=== PATIENT | female | born 1985 | race Caucasian/White ===

== ENCOUNTER 2019-05-24 14:13 | Inpatient (IN) | payer SELFPAY ==
[~2019-05-24] VITALS: Ht 170.2 cm; Wt 59.5 kg
[2019-05-24 14:57] LABS: BASO % 0 % (0-3); EOS % 0 % (0-3); HEMATOCRIT 41.6 % (36.0-47.0); HEMOGLOBIN 14.4 g/dL (12.0-15.5); LYMPH % 12 % (24-48); MEAN CORPUSCULAR HEMOGLOBIN 31 pg (25-35); MEAN CORPUSCULAR HGB CONC 35 g/dL (31-37); MEAN CORPUSCULAR VOLUME 88 fL (79-100); MONO # 0.5 x10^3/uL (0.0-1.1); MONO % 6 % (0-9); NEUT # 7.3 x10^3/uL (1.8-7.7); NEUT % 82 % (31-73); PLATELET COUNT 270 x10^3/uL (140-400); RED BLOOD COUNT 4.72 x10^6/uL (3.50-5.40); RED CELL DISTRIBUTION WIDTH 14.6 % (11.5-14.5); WHITE BLOOD COUNT 8.8 x10^3/uL (4.0-11.0)
[2019-05-24] MEDS ORDERED: ONDANSETRON PF 4 MG/2 ML VIAL. ONE (14:59)
[2019-05-24] MEDS ORDERED: ONDANSETRON PF 4 MG/2 ML VIAL. IV ONE (15:00)
[2019-05-24] MEDS ORDERED: IV NORMAL SALINE 1000ML BAG 1,000 ML IV ONE (15:00)
--- NOTE | 2019-05-24 15:03 | RAD ---
PORTABLE CHEST 1V Clinical History: Ethanol withdrawal Technique: AP view of the chest was obtained at 05/24/2019 2:49 PM. Comparison: None. Findings: The cardiomediastinal silhouette is normal. The pulmonary vasculature is normal. The lungs and pleural margins are clear. Impression: No evidence of an acute cardiopulmonary process. Electronically signed by: Mansoor Bolaños III, MD (05/24/2019 3:01 PM) [facility]
[2019-05-24 15:04] LABS: PROTHROMBIN TIME PATIENT 13.1 SEC (11.7-14.0)
[2019-05-24 15:08] LABS: CALCIUM 9.8 mg/dL (8.5-10.1); CREATININE 0.9 mg/dL (0.6-1.0); GFR 72.1; POTASSIUM 3.4 mmol/L (3.5-5.1)
[2019-05-24 15:13] LABS: ALBUMIN/GLOBULIN RATIO 1.2 (1.0-1.7); MAGNESIUM 1.6 mg/dL (1.8-2.4); TOTAL BILIRUBIN 1.3 mg/dL (0.2-1.0); TOTAL PROTEIN 9.3 g/dL (6.4-8.2)
--- NOTE | 2019-05-24 16:05 | PHYS DOC ---
Past Medical History Past Medical History: Anxiety, Depression Additional Past Medical Histor: fatty liver Past Surgical History: Tonsillectomy Alcohol Use: Heavy Drug Use: None Adult General Chief Complaint Chief Complaint: WITHDRAWL HPI HPI Patient is a 33 year old F P/W CC OF alcohol withdrawal last drink yesterday drink if with a day has had severe alcohol withdrawal before denies seizures but has been admitted to [facility] for a few days in the past partner tells me no drug use does have a history of anxiety but off of those meds as well Harris abdominal pain and vomiting vomiting clear liquids mostly no fever that she knows of just overall feels terrible very shaky Review of Systems Review of Systems Constitutional: Denies fever or chills [] Eyes: Denies change in visual acuity, redness, or eye pain [] HENT: Denies nasal congestion or sore throat [] R ] Integument: Denies rash or skin lesions [] Neurologic: All other systems were reviewed and found to be within normal limits, except as documented in this note. Current Medications Current Medications Current Medications Medications (Trade) Dose Ordered Sig/Kevin Start Time Stop Time Status Last Admin Dose Admin Lorazepam (Ativan Inj) 2 mg 1X ONCE 05/24/19 16:00 05/24/19 16:01 Ondansetron HCl (Zofran) 4 mg STK-MED ONCE 05/24/19 14:59 05/24/19 14:59 DC Sodium Chloride 1,000 ml @ 1,000 mls/hr 1X ONCE 05/24/19 15:00 05/24/19 15:59 DC 05/24/19 15:00 1,000 MLS/HR Allergies Allergies Allergies Coded Allergies Type Severity Reaction Last Updated Verified No Known Drug Allergies 05/24/19 No Physical Exam Physical Exam Constitutional: Well developed, actively vomiting moderate distress HENT: Normocephalic, atraumatic, bilateral external ears normal, oropharynx moist, no oral exudates, nose normal. [] Eyes: PERRLA, EOMI, conjunctiva normal, no discharge. [] Neck: Normal range of motion, no tenderness, supple, no stridor. [] Cardiovascular: Initially very tachycardic no definite murmurs Lungs & Thorax: Bilateral breath sounds clear to auscultation [] Abdomen: Bowel sounds normal, soft, mild nonspecific tenderness, no masses, no pulsatile masses. [] Skin: Warm, dry, no erythema, no rash. [] Back: No tenderness, no CVA tenderness. [] Extremities: No tenderness, no cyanosis, no clubbing, ROM intact, no edema. [] Neurologic: Alert and oriented X 3, normal motor function, normal sensory function, no focal deficits noted. [] Psychologic: Anxious with tremor and tongue WAG Present Current Patient Data Vital Signs Vital Signs Date Time Temp Pulse Resp B/P (MAP) Pulse Ox O2 Delivery O2 Flow Rate FiO2 05/24/19 14:20 98.5 160 17 135/96 (109) 95 Room Air 98.5 Lab Values Laboratory Tests Test 05/24/19 14:40 White Blood Count 8.8 x10^3/uL (4.0-11.0) Red Blood Count 4.72 x10^6/uL (3.50-5.40) Hemoglobin 14.4 g/dL (12.0-15.5) Hematocrit 41.6 % (36.0-47.0) Mean Corpuscular Volume 88 fL (79-100) Mean Corpuscular Hemoglobin 31 pg (25-35) Mean Corpuscular Hemoglobin Concent 35 g/dL (31-37) Red Cell Distribution Width 14.6 % (11.5-14.5) H Platelet Count 270 x10^3/uL (140-400) Neutrophils (%) (Auto) 82 % (31-73) H Lymphocytes (%) (Auto) 12 % (24-48) L Monocytes (%) (Auto) 6 % (0-9) Eosinophils (%) (Auto) 0 % (0-3) Basophils (%) (Auto) 0 % (0-3) Neutrophils # (Auto) 7.3 x10^3/uL (1.8-7.7) Lymphocytes # (Auto) 1.0 x10^3/uL (1.0-4.8) Monocytes # (Auto) 0.5 x10^3/uL (0.0-1.1) Eosinophils # (Auto) 0.0 x10^3/uL (0.0-0.7) Basophils # (Auto) 0.0 x10^3/uL (0.0-0.2) Prothrombin Time 13.1 SEC (11.7-14.0) Prothrombin Time INR 1.0 (0.8-1.1) Maternal Serum HCG Beta Subunit < 1 mIU/mL (0-5) Sodium Level 139 mmol/L (136-145) Potassium Level 3.4 mmol/L (3.5-5.1) L Chloride Level 93 mmol/L (98-107) L Carbon Dioxide Level 21 mmol/L (21-32) Anion Gap 25 (6-14) H Blood Urea Nitrogen 8 mg/dL (7-20) Creatinine 0.9 mg/dL (0.6-1.0) Estimated GFR (Cockcroft-Gault) 72.1 BUN/Creatinine Ratio 9 (6-20) Glucose Level 189 mg/dL (70-99) H Calcium Level 9.8 mg/dL (8.5-10.1) Magnesium Level 1.6 mg/dL (1.8-2.4) L Total Bilirubin 1.3 mg/dL (0.2-1.0) H Aspartate Amino Transferase (AST) 50 U/L (15-37) H Alanine Aminotransferase (ALT) 31 U/L (14-59) Alkaline Phosphatase 101 U/L (46-116) Total Protein 9.3 g/dL (6.4-8.2) H Albumin 5.0 g/dL (3.4-5.0) Albumin/Globulin Ratio 1.2 (1.0-1.7) Lipase 37 U/L (73-393) L Ethyl Alcohol Level < 10 mg/dL (0-10) Laboratory Tests 05/24/19 14:40 Laboratory Tests 05/24/19 14:40 EKG EKG []Sinus tach rate 107 no acute STEMI no ischemia identified Radiology/Procedures Radiology/Procedures [] Impressions: omparison: None. Findings: The cardiomediastinal silhouette is normal. The pulmonary vasculature is normal. The lungs and pleural margins are clear. Impression: No evidence of an acute cardiopulmonary process. Electronically signed by: Brenden Bolaños III, MD (05/24/2019 3:01 PM) [facility] DICTATED and SIGNED BY: BRENDEN BOLAÑOS III, MD DATE: 05/24/19 1501 Course & Med Decision Making Course & Med Decision Making Pertinent Labs and Imaging studies reviewed. (See chart for details) []33-year-old female withdrawal pretty severe tremors, leg severe tachycardia on initial evaluation somewhat improved mid 1 teens after Ativan IV fluids but still fairly tremulous at this point time plan to admit for medical stabili zarosi [place] PROTOCOL AND FURTHER OBS NOTED HYPOMAG REPLETED, ANION GAP LIKELY AKA MILD TO MODERATE, WILL TREAT WITH D5 1/2NS D/W FARHAN CANC ONSULT ONCE STABLE THIS WEEK D/W RIFFEL AT 4 PM Ladonna Disclaimer Dragon Disclaimer This electronic medical record was generated, in whole or in part, using a voice recognition dictation system. Departure Departure Impression: Primary Impression: Alcohol withdrawal Disposition: ADMITTED INPATIENT Admitting Physician: THELMA Condition: STABLE Referrals: NO PCP (PCP) RADHA BRENNAN MD May 24, 2019 16:05
[2019-05-24] MEDS ORDERED: MAGNESIUM SULFATE 1GM 100 ML IV ONE (16:15)
[2019-05-24] MEDS ORDERED: POTASSIUM CL 20MEQ D5-0.45NACL 1,000 ML IV ONE (16:15)
--- NOTE | 2019-05-24 16:23 | PDOC1 ---
History and Physical Date of Admission Date of Admission DATE: 05/24/19 TIME: 16:21 Identification/Chief Complaint Chief Complaint Alcohol withdrawal Source Source: Patient History of Present Illness History of Present Illness Ms Madera is a F w/ PMHx Anxiety, Depression, fatty liver who p/w alcohol withdrawal symptoms. She notes her last drink was yesterday, already very tremulous with some early confusion and slurred speech. UDS negative for ETOH. She has had severe alcohol withdrawal before but denies seizures. She has been admitted to [facility] for a few days in the past. She currently takes no meds but previously took an antidepressant and lorazepam. She has abdominal pain and vomiting vomiting clear liquids during examination. No recent sick contacts. 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 Notably her K was 3.4, Mg 1.6, bilirubin 1.3, AST 50 Past Medical History Cardiovascular: No pertinent hx Pulmonary: No pertinent hx GI: No pertinent hx Heme/Onc: No pertinent hx Hepatobiliary: No pertinent hx Psych: Anxiety, Addictions, Depression Rheumatologic: No pertinent hx Infectious disease: No pertinent hx ENT: No pertinent hx Renal/: No pertinent hx Endocrine: No pertinent hx Dermatology: No pertinent hx Past Surgical History Past Surgical History: Tonsillectomy Family History Family History: Depression Social History Smoke: No ALCOHOL: heavy Drugs: None Current Problem List Problem List Problems Medical Problems: (1) Alcohol withdrawal Status: Acute Current Medications Current Medications Current Medications Lorazepam (Ativan Inj) 2 mg 1X ONCE IV Last administered on 05/24/19at 15:02; Start 05/24/19 at 15:00; Stop 05/24/19 at 15:01; Status DC Ondansetron HCl (Zofran) 4 mg 1X ONCE IV Last administered on 05/24/19at 15:02; Start 05/24/19 at 15:00; Stop 05/24/19 at 15:01; Status DC Sodium Chloride 1,000 ml @ 1,000 mls/hr 1X ONCE IV Last administered on 05/24/19at 15:00; Start 05/24/19 at 15:00; Stop 05/24/19 at 15:59; Status DC Ondansetron HCl (Zofran) 4 mg STK-MED ONCE .ROUTE ; Start 05/24/19 at 14:59; Stop 05/24/19 at 14:59; Status DC Lorazepam (Ativan Inj) 2 mg 1X ONCE IV Last administered on 05/24/19at 16:09; Start 05/24/19 at 16:00; Stop 05/24/19 at 16:01; Status DC Magnesium Sulfate/ Dextrose 100 ml @ 100 mls/hr 1X ONCE IV Last administered on 05/24/19at 16:09; Start 05/24/19 at 16:15; Stop 05/24/19 at 17:14 Potassium Chloride/Dextrose/ Sod Cl 1,000 ml @ 125 mls/hr 1X ONCE IV ; Start 05/24/19 at 16:15; Stop 05/25/19 at 00:14 Allergies Allergies: Coded Allergies: No Known Drug Allergies (Unverified , 05/24/19) ROS General: YES: Chills, Fatigue, Malaise, Appetite; No: Night Sweats, Other PSYCHOLOGICAL ROS: YES: Anxiety, Depression, Irritablity, Memory difficulties; No: Behavioral Disorder, Concentration difficultie, Decreased libido, Disorientation, Hallucinations, Hostility, Mood Swings, Obsessive thoughts, Phys ical abuse, Sexual abuse, Sleep disturbances, Suicidal ideation, Other Eyes: No Blurry vision, No Decreased vision, No Double vision, No Dry eyes, No Excessive tearing, No Eye Pain, No Itchy Eyes, No Loss of vision, No Photophobia, No Scotomata, No Uses contacts, No Uses glasses, No Other HEENT: No: Heacaches, Visual Changes, Hearing change, Nasal congestion, Nasal discharge, Oral lesions, Sinus pain, Sore Throat, Epistaxis, Sneezing, Snoring, Tinnitus, Vertigo, Vocal changes, Other ALLERGY AND IMMUNOLOGY: No: Hives, Insect Bite Sensitivity, Itchy/Watery Eyes, Nasal Congestion, Post Nasal Drip, Seasonal Allergies, Other Hematological and Lymphatic: No: Bleeding Problems, Blood Clots, Blood Transfusions, Brusing, Night Sweats, Pallor, Swollen Lymph Nodes, Other ENDOCRINE: No: Breast Changes, Galactorrhea, Hair Pattern Changes, Hot Flashes, Malaise/lethargy, Mood Swings, Palpitations, Polydipsia/polyuria, Skin Changes, Temperature Intolerance, Unexpected Weight Changes, Other Breast: No New/Changing Breast Lumps, No Nipple changes, No Nipple discharge, No Other Respiratory: No: Cough, Hemoptysis, Orthopnea, Pleuritic Pain, Shortness of breath, SOB with excertion, Sputum Changes, Stridor, Tachypnea, Wheezing, Other Cardiovascular: No Chest Pain, No Palpitations, No Orthopnea, No Paroxysmal Noc. Dyspnea, No Edema, No Lt Headedness, No Other Gastrointestinal: Yes Nausea, Yes Abdominal Pain; No Vomiting, No Diarrhea, No Constipation, No Melena, No Hematochezia, No Other Genitourinary: No Dysuria, No Frequency, No Incontinence, No Hematuria, No Retention, No Discharge, No Urgency, No Pain, No Flank Pain, No Other, No , No , No , No , No , No , No Musculoskeletal: No Gait Disturbance, No Joint Pain, No Joint Stiffness, No Joint Swelling, No Muscle Pain, No Muscular Weakness, No Pain In:, No Swelling In:, No Other Neurological: No Behavorial Changes, No Bowel/Bladder ControlChng, No Confusion, No Dizziness, No Gait Disturbance, No Headaches, No Impaired Coord/balance, No Memory Loss, No Numbness/Tingling, No Seizures, No Speech Problems, No Tremors, No Visual Changes, No Weakness, No Other Skin: No Dry Skin, No Eczema, No Hair Changes, No Lumps, No Mole Changes, No Mottling, No Nail Changes, No Pruritus, No Rash, No Skin Lesion Changes, No Other, No Acne Physical Exam General: Alert, Oriented X3, Cooperative, No acute distress HEENT: Atraumatic, PERRLA, EOMI, Mucous membr. moist/pink Lungs: Clear to auscultation, Normal air movement Heart: S1S2, RRR (TACHY), no thrills, no rubs, no gallops, no murmurs Abdomen: Normal bowel sounds, Soft, No tenderness, No hepatosplenomegaly, No masses Extremities: No clubbing, No cyanosis, No edema, Normal pulses, No tenderness/swelling Skin: No rashes, No breakdown, No significant lesion Neuro: Normal gait, Normal speech, Strength at 5/5 X4 ext, Normal tone, Sensation intact, Cranial nerves 3-12 NL, Reflexes 2+, Other (tremulous) Psych/Mental Status: Mental status NL, Mood NL Vitals Vitals Vital Signs Date Time Temp Pulse Resp B/P (MAP) Pulse Ox O2 Delivery O2 Flow Rate FiO2 05/24/19 14:20 98.5 160 17 135/96 (109) 95 Room Air 98.5 Labs Labs Laboratory Tests Test 05/24/19 14:40 White Blood Count 8.8 x10^3/uL (4.0-11.0) Red Blood Count 4.72 x10^6/uL (3.50-5.40) Hemoglobin 14.4 g/dL (12.0-15.5) Hematocrit 41.6 % (36.0-47.0) Mean Corpuscular Volume 88 fL (79-100) Mean Corpuscular Hemoglobin 31 pg (25-35) Mean Corpuscular Hemoglobin Concent 35 g/dL (31-37) Red Cell Distribution Width 14.6 % (11.5-14.5) Platelet Count 270 x10^3/uL (140-400) Neutrophils (%) (Auto) 82 % (31-73) Lymphocytes (%) (Auto) 12 % (24-48) Monocytes (%) (Auto) 6 % (0-9) Eosinophils (%) (Auto) 0 % (0-3) Basophils (%) (Auto) 0 % (0-3) Neutrophils # (Auto) 7.3 x10^3/uL (1.8-7.7) Lymphocytes # (Auto) 1.0 x10^3/uL (1.0-4.8) Monocytes # (Auto) 0.5 x10^3/uL (0.0-1.1) Eosinophils # (Auto) 0.0 x10^3/uL (0.0-0.7) Basophils # (Auto) 0.0 x10^3/uL (0.0-0.2) Prothrombin Time 13.1 SEC (11.7-14.0) Prothromb Time International Ratio 1.0 (0.8-1.1) Maternal Serum HCG Beta Subunit < 1 mIU/mL (0-5) Sodium Level 139 mmol/L (136-145) Potassium Level 3.4 mmol/L (3.5-5.1) Chloride Level 93 mmol/L (98-107) Carbon Dioxide Level 21 mmol/L (21-32) Anion Gap 25 (6-14) Blood Urea Nitrogen 8 mg/dL (7-20) Creatinine 0.9 mg/dL (0.6-1.0) Estimated GFR (Cockcroft-Gault) 72.1 BUN/Creatinine Ratio 9 (6-20) Glucose Level 189 mg/dL (70-99) Calcium Level 9.8 mg/dL (8.5-10.1) Magnesium Level 1.6 mg/dL (1.8-2.4) Total Bilirubin 1.3 mg/dL (0.2-1.0) Aspartate Amino Transf (AST/SGOT) 50 U/L (15-37) Alanine Aminotransferase (ALT/SGPT) 31 U/L (14-59) Alkaline Phosphatase 101 U/L (46-116) Total Protein 9.3 g/dL (6.4-8.2) Albumin 5.0 g/dL (3.4-5.0) Albumin/Globulin Ratio 1.2 (1.0-1.7) Lipase 37 U/L (73-393) Ethyl Alcohol Level < 10 mg/dL (0-10) Laboratory Tests Test 05/24/19 14:40 White Blood Count 8.8 x10^3/uL (4.0-11.0) Red Blood Count 4.72 x10^6/uL (3.50-5.40) Hemoglobin 14.4 g/dL (12.0-15.5) Hematocrit 41.6 % (36.0-47.0) Mean Corpuscular Volume 88 fL (79-100) Mean Corpuscular Hemoglobin 31 pg (25-35) Mean Corpuscular Hemoglobin Concent 35 g/dL (31-37) Red Cell Distribution Width 14.6 % (11.5-14.5) Platelet Count 270 x10^3/uL (140-400) Neutrophils (%) (Auto) 82 % (31-73) Lymphocytes (%) (Auto) 12 % (24-48) Monocytes (%) (Auto) 6 % (0-9) Eosinophils (%) (Auto) 0 % (0-3) Basophils (%) (Auto) 0 % (0-3) Neutrophils # (Auto) 7.3 x10^3/uL (1.8-7.7) Lymphocytes # (Auto) 1.0 x10^3/uL (1.0-4.8) Monocytes # (Auto) 0.5 x10^3/uL (0.0-1.1) Eosinophils # (Auto) 0.0 x10^3/uL (0.0-0.7) Basophils # (Auto) 0.0 x10^3/uL (0.0-0.2) Prothrombin Time 13.1 SEC (11.7-14.0) Prothromb Time International Ratio 1.0 (0.8-1.1) Maternal Serum HCG Beta Subunit < 1 mIU/mL (0-5) Sodium Level 139 mmol/L (136-145) Potassium Level 3.4 mmol/L (3.5-5.1) Chloride Level 93 mmol/L (98-107) Carbon Dioxide Level 21 mmol/L (21-32) Anion Gap 25 (6-14) Blood Urea Nitrogen 8 mg/dL (7-20) Creatinine 0.9 mg/dL (0.6-1.0) Estimated GFR (Cockcroft-Gault) 72.1 BUN/Creatinine Ratio 9 (6-20) Glucose Level 189 mg/dL (70-99) Calcium Level 9.8 mg/dL (8.5-10.1) Magnesium Level 1.6 mg/dL (1.8-2.4) Total Bilirubin 1.3 mg/dL (0.2-1.0) Aspartate Amino Transf (AST/SGOT) 50 U/L (15-37) Alanine Aminotransferase (ALT/SGPT) 31 U/L (14-59) Alkaline Phosphatase 101 U/L (46-116) Total Protein 9.3 g/dL (6.4-8.2) Albumin 5.0 g/dL (3.4-5.0) Albumin/Globulin Ratio 1.2 (1.0-1.7) Lipase 37 U/L (73-393) Ethyl Alcohol Level < 10 mg/dL (0-10) Images Images CXR - no acute abnormality VTE Prophylaxis Ordered VTE Prophylaxis Devices: No VTE Pharmacological Prophylaxi: No Assessment/Plan Assessment/Plan A/P: Nausea and vomiting - currently unable to take PO despite appetite, will give IV anti-emetics, admit for further dx and tx Acute alcohol withdrawal - tremulous, CIWA at least 10 currently after 2 mg ativan. Will give banana bag, CIWA scale. PAT team to see Hypokalemia - will replace IV if unable to take PO Hypomagnesemia - will replace IV Transaminitis - likely related to mild alcoholic hepatitis. Monitor FEN - General diet PPX - ambulatory, low risk FULL CODE Dispo - inpatient for nausea/vomiting/abdominal pain and alcohol withdrawal. KATERIN FRAUSTO MD May 24, 2019 16:23
[2019-05-24] MEDS ORDERED: HALOPERIDOL LACTATE 5 MG/ML VIAL. IVP PRN (16:30)
[2019-05-24] MEDS ORDERED: diphenhydrAMINE 50 MG/ML VIAL IVP PRN (16:30)
[2019-05-24] MEDS ORDERED: cloNIDine HCL 0.1 MG TABLET PO PRN (16:30)
[2019-05-24 17:15] VITALS: BP 131/72
[2019-05-24] MEDS ORDERED: MAGNESIUM SULFATE 2GM 50 ML IV ONE (17:30)
[2019-05-24] MEDS ORDERED: SERT25TA PO (17:36)
[2019-05-24] MEDS ORDERED: LORA-434 PO (17:36)
[2019-05-24] MEDS: LORazepam 1 MG TABLET PO PRN (18:45)
[2019-05-24] MEDS: MULTIVIT INFUSN,ADULT 4,VIT K 10 ML, THIAMINE INJ 100 MG, FOLIC ACID INJ 1 MG in IV NOR... IV SCH (18:47)
[2019-05-24 19:24] VITALS: BP 130/78
[2019-05-24 22:42] VITALS: BP 116/72
[2019-05-25 02:44] VITALS: BP 125/84
[2019-05-25] MEDS: LORazepam 1 MG TABLET PO PRN ×3 (07:18→21:44)
--- NOTE | 2019-05-25 07:40 | EKG ---
[facility] [address] [place] [address] Test Date: 2019-05-24 Test Time: 15:32:26 Pat Name: NUPUR MIMS Department: Room: Gender: F [employer]: : [id number] Requested By: RADHA BRENNAN Order Number: [id number] Reading MD: Measurements Intervals [place] Rate: 107 P: 49 AL: 108 QRS: 62 QRSD: 70 T: 32 QT: 336 QTc: 454 Interpretive Statements SINUS TACHYCARDIA OTHERWISE NORMAL ECG RI6.01 No previous ECG available for comparison
[2019-05-25 07:53] VITALS: BP 120/78
[2019-05-25] MEDS: MULTIVIT INFUSN,ADULT 4,VIT K 10 ML, THIAMINE INJ 100 MG, FOLIC ACID INJ 1 MG in IV NOR... IV SCH (09:16)
[2019-05-25 10:44] VITALS: BP 131/83
--- NOTE | 2019-05-25 12:43 | NUR ---
SS following for discharge planning. SS reviewed pt chart. Pt is self pay pt. HCFS following for self pay status. Pt is from home and is currently on room air. Pt has history of alcoholism and withdrawals. PAT team consulted for recommendations and outpatient resources. SS will continue to follow for discharge planning.
--- NOTE | 2019-05-25 13:05 | PDOC ---
PROGRESS NOTES Chief Complaint Chief Complaint currently unable to take PO despite appetite, will give IV anti-emetics, admit for further dx and tx Acute alcohol withdrawal - tremulous, w/ nystagmus Hypokalemia - Hypomagnesemia - Transaminitis - likely related to mild alcoholic hepatitis. Monitor depression and anxiety and insomnia History of Present Illness History of Present Illness restart zoloft add jayro she would like ativan for DC, discussed depression and anxiety at length Vitals Vitals Vital Signs Date Time Temp Pulse Resp B/P (MAP) Pulse Ox O2 Delivery O2 Flow Rate FiO2 05/25/19 10:44 98.2 85 16 131/83 (99) 99 Room Air 98.2 Physical Exam General: Alert, Oriented X3, Cooperative, No acute distress Heart: Regular rate, No murmurs Abdomen: Normal bowel sounds, Soft, No tenderness, No hepatosplenomegaly, No masses Extremities: No clubbing, No cyanosis, No edema, Normal pulses, No tenderness/swelling Skin: No rashes, No breakdown, No significant lesion Labs LABS Laboratory Tests Test 05/24/19 14:40 White Blood Count 8.8 x10^3/uL (4.0-11.0) Red Blood Count 4.72 x10^6/uL (3.50-5.40) Hemoglobin 14.4 g/dL (12.0-15.5) Hematocrit 41.6 % (36.0-47.0) Mean Corpuscular Volume 88 fL (79-100) Mean Corpuscular Hemoglobin 31 pg (25-35) Mean Corpuscular Hemoglobin Concent 35 g/dL (31-37) Red Cell Distribution Width 14.6 % (11.5-14.5) Platelet Count 270 x10^3/uL (140-400) Neutrophils (%) (Auto) 82 % (31-73) Lymphocytes (%) (Auto) 12 % (24-48) Monocytes (%) (Auto) 6 % (0-9) Eosinophils (%) (Auto) 0 % (0-3) Basophils (%) (Auto) 0 % (0-3) Neutrophils # (Auto) 7.3 x10^3/uL (1.8-7.7) Lymphocytes # (Auto) 1.0 x10^3/uL (1.0-4.8) Monocytes # (Auto) 0.5 x10^3/uL (0.0-1.1) Eosinophils # (Auto) 0.0 x10^3/uL (0.0-0.7) Basophils # (Auto) 0.0 x10^3/uL (0.0-0.2) Prothrombin Time 13.1 SEC (11.7-14.0) Prothromb Time International Ratio 1.0 (0.8-1.1) Maternal Serum HCG Beta Subunit < 1 mIU/mL (0-5) Sodium Level 139 mmol/L (136-145) Potassium Level 3.4 mmol/L (3.5-5.1) Chloride Level 93 mmol/L (98-107) Carbon Dioxide Level 21 mmol/L (21-32) Anion Gap 25 (6-14) Blood Urea Nitrogen 8 mg/dL (7-20) Creatinine 0.9 mg/dL (0.6-1.0) Estimated GFR (Cockcroft-Gault) 72.1 BUN/Creatinine Ratio 9 (6-20) Glucose Level 189 mg/dL (70-99) Calcium Level 9.8 mg/dL (8.5-10.1) Magnesium Level 1.6 mg/dL (1.8-2.4) Total Bilirubin 1.3 mg/dL (0.2-1.0) Aspartate Amino Transf (AST/SGOT) 50 U/L (15-37) Alanine Aminotransferase (ALT/SGPT) 31 U/L (14-59) Alkaline Phosphatase 101 U/L (46-116) Total Protein 9.3 g/dL (6.4-8.2) Albumin 5.0 g/dL (3.4-5.0) Albumin/Globulin Ratio 1.2 (1.0-1.7) Lipase 37 U/L (73-393) Ethyl Alcohol Level < 10 mg/dL (0-10) Review of Systems Review of Systems dizzy, weak, nauseated Assessment and Plan Assessmemt and Plan Problems Medical Problems: (1) Alcohol withdrawal Status: Acute Comment Review of Relevant I have reviewed the following items nichelle (where applicable) has been applied. Labs Laboratory Tests Test 05/24/19 14:40 White Blood Count 8.8 x10^3/uL (4.0-11.0) Red Blood Count 4.72 x10^6/uL (3.50-5.40) Hemoglobin 14.4 g/dL (12.0-15.5) Hematocrit 41.6 % (36.0-47.0) Mean Corpuscular Volume 88 fL (79-100) Mean Corpuscular Hemoglobin 31 pg (25-35) Mean Corpuscular Hemoglobin Concent 35 g/dL (31-37) Red Cell Distribution Width 14.6 % (11.5-14.5) Platelet Count 270 x10^3/uL (140-400) Neutrophils (%) (Auto) 82 % (31-73) Lymphocytes (%) (Auto) 12 % (24-48) Monocytes (%) (Auto) 6 % (0-9) Eosinophils (%) (Auto) 0 % (0-3) Basophils (%) (Auto) 0 % (0-3) Neutrophils # (Auto) 7.3 x10^3/uL (1.8-7.7) Lymphocytes # (Auto) 1.0 x10^3/uL (1.0-4.8) Monocytes # (Auto) 0.5 x10^3/uL (0.0-1.1) Eosinophils # (Auto) 0.0 x10^3/uL (0.0-0.7) Basophils # (Auto) 0.0 x10^3/uL (0.0-0.2) Prothrombin Time 13.1 SEC (11.7-14.0) Prothromb Time International Ratio 1.0 (0.8-1.1) Maternal Serum HCG Beta Subunit < 1 mIU/mL (0-5) Sodium Level 139 mmol/L (136-145) Potassium Level 3.4 mmol/L (3.5-5.1) Chloride Level 93 mmol/L (98-107) Carbon Dioxide Level 21 mmol/L (21-32) Anion Gap 25 (6-14) Blood Urea Nitrogen 8 mg/dL (7-20) Creatinine 0.9 mg/dL (0.6-1.0) Estimated GFR (Cockcroft-Gault) 72.1 BUN/Creatinine Ratio 9 (6-20) Glucose Level 189 mg/dL (70-99) Calcium Level 9.8 mg/dL (8.5-10.1) Magnesium Level 1.6 mg/dL (1.8-2.4) Total Bilirubin 1.3 mg/dL (0.2-1.0) Aspartate Amino Transf (AST/SGOT) 50 U/L (15-37) Alanine Aminotransferase (ALT/SGPT) 31 U/L (14-59) Alkaline Phosphatase 101 U/L (46-116) Total Protein 9.3 g/dL (6.4-8.2) Albumin 5.0 g/dL (3.4-5.0) Albumin/Globulin Ratio 1.2 (1.0-1.7) Lipase 37 U/L (73-393) Ethyl Alcohol Level < 10 mg/dL (0-10) Laboratory Tests Test 05/24/19 14:40 White Blood Count 8.8 x10^3/uL (4.0-11.0) Red Blood Count 4.72 x10^6/uL (3.50-5.40) Hemoglobin 14.4 g/dL (12.0-15.5) Hematocrit 41.6 % (36.0-47.0) Mean Corpuscular Volume 88 fL (79-100) Mean Corpuscular Hemoglobin 31 pg (25-35) Mean Corpuscular Hemoglobin Concent 35 g/dL (31-37) Red Cell Distribution Width 14.6 % (11.5-14.5) Platelet Count 270 x10^3/uL (140-400) Neutrophils (%) (Auto) 82 % (31-73) Lymphocytes (%) (Auto) 12 % (24-48) Monocytes (%) (Auto) 6 % (0-9) Eosinophils (%) (Auto) 0 % (0-3) Basophils (%) (Auto) 0 % (0-3) Neutrophils # (Auto) 7.3 x10^3/uL (1.8-7.7) Lymphocytes # (Auto) 1.0 x10^3/uL (1.0-4.8) Monocytes # (Auto) 0.5 x10^3/uL (0.0-1.1) Eosinophils # (Auto) 0.0 x10^3/uL (0.0-0.7) Basophils # (Auto) 0.0 x10^3/uL (0.0-0.2) Prothrombin Time 13.1 SEC (11.7-14.0) Prothromb Time International Ratio 1.0 (0.8-1.1) Maternal Serum HCG Beta Subunit < 1 mIU/mL (0-5) Sodium Level 139 mmol/L (136-145) Potassium Level 3.4 mmol/L (3.5-5.1) Chloride Level 93 mmol/L (98-107) Carbon Dioxide Level 21 mmol/L (21-32) Anion Gap 25 (6-14) Blood Urea Nitrogen 8 mg/dL (7-20) Creatinine 0.9 mg/dL (0.6-1.0) Estimated GFR (Cockcroft-Gault) 72.1 BUN/Creatinine Ratio 9 (6-20) Glucose Level 189 mg/dL (70-99) Calcium Level 9.8 mg/dL (8.5-10.1) Magnesium Level 1.6 mg/dL (1.8-2.4) Total Bilirubin 1.3 mg/dL (0.2-1.0) Aspartate Amino Transf (AST/SGOT) 50 U/L (15-37) Alanine Aminotransferase (ALT/SGPT) 31 U/L (14-59) Alkaline Phosphatase 101 U/L (46-116) Total Protein 9.3 g/dL (6.4-8.2) Albumin 5.0 g/dL (3.4-5.0) Albumin/Globulin Ratio 1.2 (1.0-1.7) Lipase 37 U/L (73-393) Ethyl Alcohol Level < 10 mg/dL (0-10) Medications Current Medications Lorazepam (Ativan Inj) 2 mg 1X ONCE IV Last administered on 05/24/19at 15:02; Start 05/24/19 at 15:00; Stop 05/24/19 at 15:01; Status DC Ondansetron HCl (Zofran) 4 mg 1X ONCE IV Last administered on 05/24/19at 15:02 ; Start 05/24/19 at 15:00; Stop 05/24/19 at 15:01; Status DC Sodium Chloride 1,000 ml @ 1,000 mls/hr 1X ONCE IV Last administered on 05/24/19at 15:00; Start 05/24/19 at 15:00; Stop 05/24/19 at 15:59; Status DC Ondansetron HCl (Zofran) 4 mg STK-MED ONCE .ROUTE ; Start 05/24/19 at 14:59; Stop 05/24/19 at 14:59; Status DC Lorazepam (Ativan Inj) 2 mg 1X ONCE IV Last administered on 05/24/19at 16:09; Start 05/24/19 at 16:00; Stop 05/24/19 at 16:01; Status DC Magnesium Sulfate/ Dextrose 100 ml @ 100 mls/hr 1X ONCE IV Last administered on 05/24/19at 16:09; Start 05/24/19 at 16:15; Stop 05/24/19 at 17:14; Status DC Potassium Chloride/Dextrose/ Sod Cl 1,000 ml @ 125 mls/hr 1X ONCE IV Last administered on 05/24/19at 16:15; Start 05/24/19 at 16:15; Stop 05/25/19 at 00:14; Status DC Multivitamins 10 ml/Thiamine HCl 100 mg/Folic Acid 1 mg/Sodium Chloride 1,011.2 ml @ 100 mls/ hr DAILY IV Last administered on 05/25/19at 09:16; Start 05/24/19 at 17:00; Stop 05/28/19 at 19:07 Lorazepam (Ativan) 2 mg PRN Q1HR PRN PO For CIWA 8-14 Last administered on 05/25/19at 07:18; Start 05/24/19 at 16:30 Lorazepam (Ativan Inj) 2 mg PRN Q1HR PRN IV For CIWA 8-14; Start 05/24/19 at 16:30 Lorazepam (Ativan Inj) 4 mg PRN Q1HR PRN IV For CIWA 15 or greater; Start 05/24/19 at 16:30 Haloperidol Lactate (Haldol Inj) 5 mg PRN Q4HRS PRN IVP Hallucinatns,Confusn,Delirium; Start 05/24/19 at 16:30 Diphenhydramine HCl (Benadryl) 25 mg PRN Q15MIN PRN IVP EPS symptoms 2'Haldol admin; Start 05/24/19 at 16:30 Clonidine HCl (Catapres) 0.1 mg PRN Q1HR PRN PO SBP > 180 or DBP > 100, MRX3; Start 05/24/19 at 16:30 Magnesium Sulfate 50 ml @ 25 mls/hr 1X ONCE IV Last administered on 05/24/19at 17:21; Start 05/24/19 at 17:30; Stop 05/24/19 at 19:29; Status DC Active Scripts Active Reported Ativan (Lorazepam) 1 Mg Tablet 1 Mg PO PRN Q8HRS PRN Zoloft (Sertraline Hcl) 25 Mg Tablet Unknown Dose PO DAILY Vitals/I & O Vital Sign - Last 24 Hours 05/24/19 05/24/19 05/24/19 05/24/19 14:20 14:30 15:00 15:30 Temp 98.5 98.5 Pulse 160 156 124 107 Resp 17 16 16 16 B/P (MAP) 135/96 (109) 135/96 (109) 154/98 (116) 119/65 (83) Pulse Ox 95 97 97 98 O2 Delivery Room Air Room Air Room Air Room Air 05/24/19 05/24/19 05/24/19 05/24/19 16:00 16:30 17:00 17:15 Temp 98.9 98.9 Pulse 116 110 118 115 Resp 16 14 14 18 B/P (MAP) 110/72 (85) 119/71 (87) 118/61 (80) 131/72 (91) Pulse Ox 98 96 96 96 O2 Delivery Room Air Room Air Room Air Room Air 05/24/19 05/24/19 05/24/19 05/24/19 17:31 19:24 20:00 22:42 Temp 98.1 97.8 98.1 97.8 Pulse 123 112 Resp 16 16 B/P (MAP) 130/78 (95) 116/72 (87) Pulse Ox 97 97 O2 Delivery Room Air Room Air Room Air Room Air 05/25/19 05/25/19 05/25/19 02:44 07:53 10:44 Temp 97.5 97.5 98.2 97.5 97.5 98.2 Pulse 100 99 85 Resp 16 16 16 B/P (MAP) 125/84 (98) 120/78 (92) 131/83 (99) Pulse Ox 96 98 99 O2 Delivery Room Air Room Air Room Air Intake and Output 05/24/19 05/24/19 05/25/19 15:00 23:00 07:00 Intake Total 120 ml Balance 120 ml RAMÓN BARON MD May 25, 2019 13:05
[2019-05-25] MEDS ORDERED: ZOLPIDEM 5 MG TABLET. PO PRN (13:15)
[2019-05-25] MEDS ORDERED: POLYETHYLENE GLYCOL 3350 17 GM PACKET. PO ONE (13:15)
[2019-05-25] MEDS ORDERED: POLYETHYLENE GLYCOL 3350 17 GM PACKET. PO PRN (13:15)
--- NOTE | 2019-05-25 14:14 | NUR ---
SS following up with discharge planning. Lebron from the PAT team met with pt and reported that pt has been off of her Zoloft and has a med appointment at [facility] on 06/01/2019 to resume her medications. Lebron reported that he also gave pt a referral to [facility] for assistance with substance abuse and resources.
[2019-05-25 14:41] VITALS: BP 126/77
[2019-05-25] MEDS: SERTRALINE 25 MG TABLET. PO SCH (14:41)
[2019-05-25 19:00] VITALS: BP 112/75
[2019-05-25 22:54] VITALS: BP 130/84
[2019-05-26 03:00] VITALS: BP 119/77
[2019-05-26 07:00] VITALS: BP 129/79
[2019-05-26] MEDS: SERTRALINE 25 MG TABLET. PO SCH (08:20)
[2019-05-26] MEDS: LORazepam 1 MG TABLET PO PRN (08:20)
[2019-05-26 08:27] LABS: BASO % 1 % (0-3); EOS # 0.1 x10^3/uL (0.0-0.7); EOS % 2 % (0-3); HEMATOCRIT 33.9 % (36.0-47.0); HEMOGLOBIN 11.4 g/dL (12.0-15.5); LYMPH # 1.7 x10^3/uL (1.0-4.8); LYMPH % 57 % (24-48); MEAN CORPUSCULAR HEMOGLOBIN 30 pg (25-35); MEAN CORPUSCULAR HGB CONC 34 g/dL (31-37); MEAN CORPUSCULAR VOLUME 90 fL (79-100); MONO # 0.2 x10^3/uL (0.0-1.1); MONO % 5 % (0-9); NEUT % 35 % (31-73); PLATELET COUNT 112 x10^3/uL (140-400); RED BLOOD COUNT 3.77 x10^6/uL (3.50-5.40)
[2019-05-26 08:43] LABS: ALBUMIN 3.4 g/dL (3.4-5.0); ALBUMIN/GLOBULIN RATIO 1.1 (1.0-1.7); CALCIUM 8.6 mg/dL (8.5-10.1); CREATININE 0.6 mg/dL (0.6-1.0); GFR 115.1; POTASSIUM 3.4 mmol/L (3.5-5.1); TOTAL BILIRUBIN 0.8 mg/dL (0.2-1.0); TOTAL PROTEIN 6.6 g/dL (6.4-8.2)
[2019-05-26] MEDS: MULTIVIT INFUSN,ADULT 4,VIT K 10 ML, THIAMINE INJ 100 MG, FOLIC ACID INJ 1 MG in IV NOR... IV SCH (09:00)
[2019-05-26] MEDS ORDERED: POTASSIUM CHLORIDE 20 MEQ TABLET.ER. PO ONE (09:15)
[2019-05-26 11:00] VITALS: BP 130/80
[2019-05-26] MEDS ORDERED: ZOLPIDEM 5 MG TABLET. PO PRN (12:45)
[2019-05-26] MEDS ORDERED: chlordiazePOXIDE HCL 25 MG CAPSULE PO PRN (12:45)
--- NOTE | 2019-05-26 13:02 | PDOC3 ---
Discharge Summary Visit Information Date of Admission: May 24, 2019 Date of Discharge: May 26, 2019 Admitting Diagnosis Comment: Acute alcohol withdrawal - tremulous, Hypokalemia - Hypomagnesemia - Transaminitis Anxiety NOS Final Diagnosis Problems Medical Problems: (1) Alcohol withdrawal Status: Acute Brief Hospital Course Allergies Allergies Coded Allergies Type Severity Reaction Last Updated Verified No Known Drug Allergies 05/24/19 No Vital Signs Vital Signs Date Time Temp Pulse Resp B/P (MAP) Pulse Ox O2 Delivery O2 Flow Rate FiO2 05/26/19 11:00 98.3 93 14 130/80 (97) 98 Room Air 98.3 Lab Results Laboratory Tests Test 05/24/19 14:40 05/26/19 08:06 White Blood Count 8.8 x10^3/uL (4.0-11.0) 3.0 x10^3/uL (4.0-11.0) Red Blood Count 4.72 x10^6/uL (3.50-5.40) 3.77 x10^6/uL (3.50-5.40) Hemoglobin 14.4 g/dL (12.0-15.5) 11.4 g/dL (12.0-15.5) Hematocrit 41.6 % (36.0-47.0) 33.9 % (36.0-47.0) Mean Corpuscular Volume 88 fL (79-100) 90 fL (79-100) Mean Corpuscular Hemoglobin 31 pg (25-35) 30 pg (25-35) Mean Corpuscular Hemoglobin Concent 35 g/dL (31-37) 34 g/dL (31-37) Red Cell Distribution Width 14.6 % (11.5-14.5) 14.0 % (11.5-14.5) Platelet Count 270 x10^3/uL (140-400) 112 x10^3/uL (140-400) Neutrophils (%) (Auto) 82 % (31-73) 35 % (31-73) Lymphocytes (%) (Auto) 12 % (24-48) 57 % (24-48) Monocytes (%) (Auto) 6 % (0-9) 5 % (0-9) Eosinophils (%) (Auto) 0 % (0-3) 2 % (0-3) Basophils (%) (Auto) 0 % (0-3) 1 % (0-3) Neutrophils # (Auto) 7.3 x10^3/uL (1.8-7.7) 1.0 x10^3/uL (1.8-7.7) Lymphocytes # (Auto) 1.0 x10^3/uL (1.0-4.8) 1.7 x10^3/uL (1.0-4.8) Monocytes # (Auto) 0.5 x10^3/uL (0.0-1.1) 0.2 x10^3/uL (0.0-1.1) Eosinophils # (Auto) 0.0 x10^3/uL (0.0-0.7) 0.1 x10^3/uL (0.0-0.7) Basophils # (Auto) 0.0 x10^3/uL (0.0-0.2) 0.0 x10^3/uL (0.0-0.2) Prothrombin Time 13.1 SEC (11.7-14.0) Prothromb Time International Ratio 1.0 (0.8-1.1) Maternal Serum HCG Beta Subunit < 1 mIU/mL (0-5) Sodium Level 139 mmol/L (136-145) 140 mmol/L (136-145) Potassium Level 3.4 mmol/L (3.5-5.1) 3.4 mmol/L (3.5-5.1) Chloride Level 93 mmol/L (98-107) 103 mmol/L (98-107) Carbon Dioxide Level 21 mmol/L (21-32) 27 mmol/L (21-32) Anion Gap 25 (6-14) 10 (6-14) Blood Urea Nitrogen 8 mg/dL (7-20) 4 mg/dL (7-20) Creatinine 0.9 mg/dL (0.6-1.0) 0.6 mg/dL (0.6-1.0) Estimated GFR (Cockcroft-Gault) 72.1 115.1 BUN/Creatinine Ratio 9 (6-20) 7 (6-20) Glucose Level 189 mg/dL (70-99) 97 mg/dL (70-99) Calcium Level 9.8 mg/dL (8.5-10.1) 8.6 mg/dL (8.5-10.1) Magnesium Level 1.6 mg/dL (1.8-2.4) Total Bilirubin 1.3 mg/dL (0.2-1.0) 0.8 mg/dL (0.2-1.0) Aspartate Amino Transf (AST/SGOT) 50 U/L (15-37) 126 U/L (15-37) Alanine Aminotransferase (ALT/SGPT) 31 U/L (14-59) 57 U/L (14-59) Alkaline Phosphatase 101 U/L (46-116) 78 U/L (46-116) Total Protein 9.3 g/dL (6.4-8.2) 6.6 g/dL (6.4-8.2) Albumin 5.0 g/dL (3.4-5.0) 3.4 g/dL (3.4-5.0) Albumin/Globulin Ratio 1.2 (1.0-1.7) 1.1 (1.0-1.7) Lipase 37 U/L (73-393) Ethyl Alcohol Level < 10 mg/dL (0-10) Laboratory Tests Test 05/26/19 08:06 White Blood Count 3.0 x10^3/uL (4.0-11.0) Red Blood Count 3.77 x10^6/uL (3.50-5.40) Hemoglobin 11.4 g/dL (12.0-15.5) Hematocrit 33.9 % (36.0-47.0) Mean Corpuscular Volume 90 fL (79-100) Mean Corpuscular Hemoglobin 30 pg (25-35) Mean Corpuscular Hemoglobin Concent 34 g/dL (31-37) Red Cell Distribution Width 14.0 % (11.5-14.5) Platelet Count 112 x10^3/uL (140-400) Neutrophils (%) (Auto) 35 % (31-73) Lymphocytes (%) (Auto) 57 % (24-48) Monocytes (%) (Auto) 5 % (0-9) Eosinophils (%) (Auto) 2 % (0-3) Basophils (%) (Auto) 1 % (0-3) Neutrophils # (Auto) 1.0 x10^3/uL (1.8-7.7) Lymphocytes # (Auto) 1.7 x10^3/uL (1.0-4.8) Monocytes # (Auto) 0.2 x10^3/uL (0.0-1.1) Eosinophils # (Auto) 0.1 x10^3/uL (0.0-0.7) Basophils # (Auto) 0.0 x10^3/uL (0.0-0.2) Sodium Level 140 mmol/L (136-145) Potassium Level 3.4 mmol/L (3.5-5.1) Chloride Level 103 mmol/L (98-107) Carbon Dioxide Level 27 mmol/L (21-32) Anion Gap 10 (6-14) Blood Urea Nitrogen 4 mg/dL (7-20) Creatinine 0.6 mg/dL (0.6-1.0) Estimated GFR (Cockcroft-Gault) 115.1 BUN/Creatinine Ratio 7 (6-20) Glucose Level 97 mg/dL (70-99) Calcium Level 8.6 mg/dL (8.5-10.1) Total Bilirubin 0.8 mg/dL (0.2-1.0) Aspartate Amino Transf (AST/SGOT) 126 U/L (15-37) Alanine Aminotransferase (ALT/SGPT) 57 U/L (14-59) Alkaline Phosphatase 78 U/L (46-116) Total Protein 6.6 g/dL (6.4-8.2) Albumin 3.4 g/dL (3.4-5.0) Albumin/Globulin Ratio 1.1 (1.0-1.7) Brief Hospital Course Ms. Madera is a 33 old female on zoloft, also xanax and she ran out, admitted with etoh withdrawal sxs, Needed 2-3 MN and better, She requests ambien (got a dose here) and xanax which she ran out of , Initially requested for 1 mg, we agreed on ,0.5, PCP also was apprehensive about prescribing 1mg until seen in office, Advised on etoh use and sxs to WOF on these sedative meds NO pt needs Consults: none Proc: none Discharge Information Condition at Discharge: Improved, Stable Follow Up: Weeks (PCP or psych who gives u your meds) Disposition/Orders: D/C to Home Scheduled Sertraline Hcl (Zoloft) 25 Mg Tablet, Unknown Dose PO DAILY for ANTI-DEPRESSANT, Ref 0 (Reported) Entered as Reported by: ZACH SIMON on 05/24/191735 Last Taken: UNKNOWN on Unknown Date & Time Last Action: New Order on 05/24/191735 by ZACH SIMON Scheduled PRN Lorazepam (Ativan) 1 Mg Tablet, 1 MG PO PRN Q8HRS PRN for ANXIETY / AGITATION, (Reported) Entered as Reported by: ZACH SIMON on 05/24/191735 Last Action: New Order on 05/24/191735 by AMADA BLANCAS MD May 26, 2019 13:02
[2019-05-26] MEDS ORDERED: ZOLP5TAB PO (13:03)
[2019-05-26] MEDS ORDERED: ALPR0.5T PO (13:03)
--- NOTE | 2019-05-26 13:49 | NUR ---
SW following for discharge planning, chart reviewed, discussed with RN. Pt was a transfer from [address] [place] [address]. Pt was seen by Lebron with the PAT team and provided information for a [facility] assessment. Pt is discharging home today (05/26/19), RN advised no SW needs.
--- NOTE | 2019-05-26 17:20 | NUR ---
Discharge Note: [facility] Discharge instructions and discharge home medications reviewed with Patient and a copy given. All questions have been answered and understanding verbalized. The following instructions and handouts were given: ETOH, Magnesium, K+ Discontinued lines and drains: peripheral line. Patient discharged to Home or Self Care with Family Member via Wheelchair
== END 2019-05-26 17:22 | disposition home or self-care (01) | DRG 641 ==
LOC: ER 14:13 → 2 NORTH 16:00 → 5 SOUTH 05-25 19:14
PROVIDERS: ADMIT Internal Medicine; ATTEND Internal Medicine
DX: E87.6 Hypokalemia (principal); F10.239 Alcohol dependence with withdrawal, unspecified; H55.00 Unspecified nystagmus; F32.9 Major depressive disorder, single episode, unspecified; E83.42 Hypomagnesemia; F41.9 Anxiety disorder, unspecified; K76.0 Fatty (change of) liver, not elsewhere classified; G47.00 Insomnia, unspecified; Z81.8 Family history of other mental and behavioral disorders
CPT/HCPCS: 36415; 71045; 80053; 83690; 83735; 84702; 85025; 85610; 93005; 96361; 96365; 96368; 96375; G0480; J2060; J2405; J3475; J7030; 99285-25; G0378

== ENCOUNTER 2019-07-26 12:28 | Emergency (ER) | payer SELFPAY ==
[~2019-07-26] VITALS: Ht 170.2 cm; Wt 59.0 kg
[~2019-07-26 12:28] MED LIST: ALPR0.5T PO; LORA-434 PO; SERT25TA PO; ZOLP5TAB PO
[2019-07-26] MEDS ORDERED: IV NORMAL SALINE 1000ML BAG 1,000 ML IV SCH (12:48)
--- NOTE | 2019-07-26 12:53 | PHYS DOC ---
Past Medical History Past Medical History: Anxiety, Depression, Other Additional Past Medical Histor: fatty liver,ETOH ABUSE/WITHDRAWAL Past Surgical History: Tonsillectomy Additional Information: 0.25 PPD Alcohol Use: Heavy Additional Information: DRINKS 1 PINT DAILY Drug Use: None Adult General Chief Complaint Chief Complaint: WITHDRAWL HPI HPI Patient is a 34 year old patient with history of anxiety, depression, alcoholism and episodes of alcohol withdrawal who presents with pain of alcohol withdrawal. Patient states she usually drinks 1 pint of whiskey a day with the last shot at midnight last night and today had 3 episodes of vomiting with nausea and shaking and agitation like her previous episodes of alcohol withdrawal. Patient denies suicidal or homicidal ideation, diarrhea and constipation, urinary symptom, chest pain and shortness of breath, fever and chills, focal neuro deficit, hallucination. Review of Systems Review of Systems Constitutional: Denies fever or chills [] Eyes: Denies change in visual acuity, redness, or eye pain [] HENT: Denies nasal congestion or sore throat [] Respiratory: Denies cough or shortness of breath [] Cardiovascular: No additional information not addressed in HPI [] GI: Denies abdominal pain, bloody stools or diarrhea , reports nausea and vomiting[] : Denies dysuria or hematuria [] Musculoskeletal: Denies back pain or joint pain [] Integument: Denies rash or skin lesions [] Neurologic: Denies headache, focal weakness or sensory changes [] Endocrine: Denies polyuria or polydipsia [] All other systems were reviewed and found to be within normal limits, except as documented in this note. Current Medications Current Medications Current Medications Medications (Trade) Dose Ordered Sig/Kevin Start Time Stop Time Status Last Admin Dose Admin Lorazepam (Ativan Inj) 1 mg 1X ONCE 07/26/19 16:15 07/26/19 16:16 DC 07/26/19 16:19 1 MG Multivitamins 10 ml/Thiamine HCl 100 mg/Folic Acid 1 mg/Sodium Chloride 1,011.2 ml @ 1,000 mls/ hr 1X ONCE 07/26/19 13:30 07/26/19 14:30 DC 07/26/19 13:20 1,000 MLS/HR Ondansetron HCl (Zofran) 4 mg 1X ONCE 07/26/19 13:00 07/26/19 13:01 DC 07/26/19 12:58 4 MG Sodium Chloride 1,000 ml @ 1,000 mls/hr Q1H 07/26/19 12:48 07/26/19 13:47 DC 07/26/19 12:58 1,000 MLS/HR Allergies Allergies Allergies Coded Allergies Type Severity Reaction Last Updated Verified No Known Drug Allergies 07/26/19 No Physical Exam Physical Exam Constitutional: Well developed, well nourished, mild distress, non-toxic appearance. [] HENT: Normocephalic, atraumatic, dry oral mucosa Eyes: PERRLA, EOMI, conjunctiva normal, no discharge. [] Neck: Normal range of motion, no tenderness, supple, no stridor. [] Cardiovascular:Heart rate regular rhythm, no murmur [] Lungs & Thorax: Bilateral breath sounds clear to auscultation [] Abdomen: Bowel sounds normal, soft, no tenderness, no masses, no pulsatile masses. [] Skin: Warm, dry, no erythema, no rash. [] Back: No tenderness, no CVA tenderness. [] Extremities: No tenderness, no cyanosis, no clubbing, ROM intact, no edema, bilateral hand shaking. [] Neurologic: Alert and oriented X 3, no focal deficits noted. [] Psychologic: Affect anxious, judgement normal, mood normal. [] Current Patient Data Vital Signs Vital Signs Date Time Temp Pulse Resp B/P (MAP) Pulse Ox O2 Delivery O2 Flow Rate FiO2 07/26/19 15:08 88 21 96/59 (71) 97 Room Air 07/26/19 12:34 97.6 97.6 Lab Values Laboratory Tests Test 07/26/19 12:37 07/26/19 12:42 White Blood Count 5.0 x10^3/uL (4.0-11.0) Red Blood Count 4.36 x10^6/uL (3.50-5.40) Hemoglobin 13.4 g/dL (12.0-15.5) Hematocrit 40.7 % (36.0-47.0) Mean Corpuscular Volume 93 fL (79-100) Mean Corpuscular Hemoglobin 31 pg (25-35) Mean Corpuscular Hemoglobin Concent 33 g/dL (31-37) Red Cell Distribution Width 15.2 % (11.5-14.5) H Platelet Count 236 x10^3/uL (140-400) Neutrophils (%) (Auto) 40 % (31-73) Lymphocytes (%) (Auto) 51 % (24-48) H Monocytes (%) (Auto) 7 % (0-9) Eosinophils (%) (Auto) 1 % (0-3) Basophils (%) (Auto) 1 % (0-3) Neutrophils # (Auto) 2.0 x10^3/uL (1.8-7.7) Lymphocytes # (Auto) 2.6 x10^3/uL (1.0-4.8) Monocytes # (Auto) 0.3 x10^3/uL (0.0-1.1) Eosinophils # (Auto) 0.0 x10^3/uL (0.0-0.7) Basophils # (Auto) 0.1 x10^3/uL (0.0-0.2) Urine Collection Type Unknown Urine Color Yellow Urine Clarity Clear Urine pH 5.5 Urine Specific [place] 1.025 Urine Protein Negative mg/dL (NEG-TRACE) Urine Glucose (UA) Negative mg/dL (NEG) Urine Ketones (Stick) Trace mg/dL (NEG) Urine Blood Negative (NEG) Urine Nitrite Negative (NEG) Urine Bilirubin Negative (NEG) Urine Urobilinogen Dipstick 0.2 mg/dL (0.2 mg/dL) Urine Leukocyte Esterase Negative (NEG) Urine RBC 0 /HPF (0-2) Urine WBC 5-10 /HPF (0-4) Urine Squamous Epithelial Cells Mod /LPF Urine Bacteria 0 /HPF (0-FEW) Urine Hyaline Casts Moderate /HPF Urine Mucus Marked /LPF Sodium Level 145 mmol/L (136-145) Potassium Level 3.7 mmol/L (3.5-5.1) Chloride Level 104 mmol/L (98-107) Carbon Dioxide Level 21 mmol/L (21-32) Anion Gap 20 (6-14) H Blood Urea Nitrogen 10 mg/dL (7-20) Creatinine 0.8 mg/dL (0.6-1.0) Estimated GFR (Cockcroft-Gault) 82.1 Glucose Level 87 mg/dL (70-99) Calcium Level 8.7 mg/dL (8.5-10.1) Magnesium Level 1.9 mg/dL (1.8-2.4) Total Bilirubin 0.2 mg/dL (0.2-1.0) Direct Bilirubin 0.1 mg/dL (0.0-0.2) Aspartate Amino Transferase (AST) 57 U/L (15-37) H Alanine Aminotransferase (ALT) 43 U/L (14-59) Alkaline Phosphatase 77 U/L (46-116) Total Protein 8.2 g/dL (6.4-8.2) Albumin 4.2 g/dL (3.4-5.0) Urine Opiates Screen Neg (NEG) Urine Methadone Screen Neg (NEG) Urine Barbiturates Neg (NEG) Urine Phencyclidine Screen Neg (NEG) Urine Amphetamine/Methamphetamine Neg (NEG) Urine Benzodiazepines Screen Neg (NEG) Urine Cocaine Screen Neg (NEG) Urine Cannabinoids Screen Neg (NEG) Ethyl Alcohol Level 256 mg/dL (0-10) H Urine Ethyl Alcohol Pos (NEG) POC Urine HCG, Qualitative Hcg negative (Negative) Laboratory Tests 07/26/19 12:37 Laboratory Tests 07/26/19 12:37 EKG EKG [] Radiology/Procedures Radiology/Procedures [] Course & Med Decision Making Course & Med Decision Making Pertinent Labs reviewed. (See chart for details) Evaluation of patient in ER showed 34-year-old female patient with history of alcohol abuse and complaining of alcohol withdrawal. Patient had blood alcohol of 256 and treated with Zofran and IV fluid and Ativan with improvement of her anxiety. UA showed 5-10 WBCs with moderate squamous with contamination. Patient did not have criteria for inpatient treatment regarding alcohol withdrawal but requesting detox at time of discharge. PAT team staff was consulted and evaluated the patient and patient is to go to adult detox unit as outpatient. Transportation arrangements was provided and prescription for Librium for 2 days was faxed to detox center([facility]). She tolerated oral intake. I've spoken with the patient and/or caregivers. I've explained the patient's condition, diagnosis and treatment plan based on information available to me at this time. I've answered the patient's and/or caregivers questions and addressed any concerns. The patient and/or caregivers have a good understanding the patient's diagnosis, condition and treatment plan as can be expected at this point. Vital signs have been stabilized. The patient's condition is stable for discharge from the emergency department. The patient will pursue further outpatient evaluation with her primary care provider or other designated consulting physician as outlined in the discharge instructions. Patient and/or caregivers are agreeable to this plan of care and follow-up instructions have been explained in detail. The patient and/or caregivers have received these instructions in written format and expressed unde rstanding of these discharge instructions. The patient and her caregivers are aware that if any significant change in condition or worsening of symptoms should prompt him to immediately return to this of the closest emergency department. If an emergent department is not readily available I would en courage him to call 911. Dragon Disclaimer Dragon Disclaimer This electronic medical record was generated, in whole or in part, using a voice recognition dictation system. Departure Departure Impression: Primary Impression: Alcohol abuse Additional Impressions: Nausea and vomiting Admitted to alcohol detoxification center Disposition: 65 XFER TO PSYCH HOSP/UNIT (alcohol detox unit) Condition: IMPROVED Referrals: NO PCP (PCP) Patient Instructions: Alcohol Problems Scripts Chlordiazepoxide Hcl (CHLORDIAZEPOXIDE HCL) 25 Mg Capsule 50 MG PO Q6HRS PRN for AGITATION, #16 CAP Prov: JOHN SALEH MD 07/26/19 Problem Qualifiers Additional Impressions: Nausea and vomiting Vomiting type: unspecified Vomiting Intractability: non-intractable Qualified Codes: R11.2 - Nausea with vomiting, unspecified JOHN SALEH MD Jul 26, 2019 12:53
[2019-07-26] MEDS ORDERED: ONDANSETRON PF 4 MG/2 ML VIAL. IV ONE (13:00)
[2019-07-26 13:03] LABS: BILIRUBIN,URINE NEGATIVE (NEG); CLARITY,URINE CLEAR; COLOR,URINE YELLOW; NITRITE,URINE NEGATIVE (NEG); PH,URINE 5.5; PROTEIN,URINE NEGATIVE (NEG-TRACE); UROBILINOGEN,URINE 0.2 mg/dL (0.2 mg/dL)
[2019-07-26 13:07] LABS: BASO # 0.1 x10^3/uL (0.0-0.2); BASO % 1 % (0-3); EOS % 1 % (0-3); HEMATOCRIT 40.7 % (36.0-47.0); HEMOGLOBIN 13.4 g/dL (12.0-15.5); LYMPH # 2.6 x10^3/uL (1.0-4.8); LYMPH % 51 % (24-48); MEAN CORPUSCULAR HEMOGLOBIN 31 pg (25-35); MEAN CORPUSCULAR HGB CONC 33 g/dL (31-37); MEAN CORPUSCULAR VOLUME 93 fL (79-100); MONO # 0.3 x10^3/uL (0.0-1.1); MONO % 7 % (0-9); NEUT % 40 % (31-73); PLATELET COUNT 236 x10^3/uL (140-400); RED BLOOD COUNT 4.36 x10^6/uL (3.50-5.40); RED CELL DISTRIBUTION WIDTH 15.2 % (11.5-14.5)
[2019-07-26 13:09] LABS: AMPHETAMINE/METHAMPHETAMINE NEG (NEG); BARBITURATES NEG (NEG); BENZODIAZEPINES NEG (NEG); CANNABINOIDS NEG (NEG); COCAINE NEG (NEG); METHADONE NEG (NEG); OPIATES NEG (NEG); PHENCYCLIDINE NEG (NEG)
[2019-07-26 13:13] LABS: CALCIUM 8.7 mg/dL (8.5-10.1); CREATININE 0.8 mg/dL (0.6-1.0); GFR 82.1; POTASSIUM 3.7 mmol/L (3.5-5.1)
[2019-07-26 13:16] LABS: ALBUMIN 4.2 g/dL (3.4-5.0); DIRECT BILIRUBIN 0.1 mg/dL (0.0-0.2); MAGNESIUM 1.9 mg/dL (1.8-2.4); TOTAL BILIRUBIN 0.2 mg/dL (0.2-1.0); TOTAL PROTEIN 8.2 g/dL (6.4-8.2)
[2019-07-26 13:19] LABS: HYALINE CASTS, URINE MODERATE /HPF; SQUAMOUS EPITHELIAL CELL,UR MOD /LPF
[2019-07-26 13:21] LABS: BACTERIA,URINE 0 /HPF (0-FEW); RBC,URINE 0 /HPF (0-2)
[2019-07-26] MEDS ORDERED: MULTIVIT INFUSN,ADULT 4,VIT K 10 ML, THIAMINE INJ 100 MG, FOLIC ACID INJ 1 MG in IV NOR... IV ONE (13:30)
[2019-07-26] MEDS ORDERED: CHLO25CA9 PO ×2 (16:09→16:11)
[2019-07-26 16:20] VITALS: BP 101/59
== END 2019-07-26 16:30 ==
LOC: ER 12:28
DX: F10.239 Alcohol dependence with withdrawal, unspecified (principal); R11.2 Nausea with vomiting, unspecified; F41.9 Anxiety disorder, unspecified; F32.9 Major depressive disorder, single episode, unspecified; Z90.89 Acquired absence of other organs; Z79.899 Other long term (current) drug therapy; Y90.8 Blood alcohol level of 240 mg/100 ml or more
CPT/HCPCS: 36415; 80048; 80076; 80307; 81001; 81025; 83735; 85025; 87086; 96365; 96375; 96376; 99285; G0480; J2060; J2405; J7030

== ENCOUNTER 2020-04-01 19:01 | Inpatient (IN) | payer SELFPAY ==
[~2020-04-01] VITALS: Ht 170.2 cm; Wt 67.5 kg
[~2020-04-01 19:01] MED LIST changes: +CHLO25CA9 PO
[2020-04-01] MEDS ORDERED: PROPOFOL 10 MG/ML (20ML) VIAL. IV ONE (19:15)
--- NOTE | 2020-04-01 19:28 | PHYS DOC ---
Past Medical History Past Medical History: Anxiety, Depression, Other Additional Past Medical Histor: fatty liver,ETOH ABUSE/WITHDRAWAL Past Surgical History: Tonsillectomy Smoking Status: Current Every Day Smoker Alcohol Use: Heavy Drug Use: None General Adult HPI: HPI: The history was obtained from the EMS. Patient is a 34-year-old female with PMH high cholesterol, alcohol abuse who presents with a chief complaint of seizure- like activity. 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 They state when they saw her she was unresponsive and had upper extremity tonic- clonic movements. They state that she became somewhat agitated in route and they did administer 10 mg total of intramuscular Versed. They state that the patient has not gone on any fire runs today. They state they think she has a history of seizure activity. Review of Systems: Review of Systems: Constitutional: Denies fever or chills. [] Eyes: Denies change in visual acuity. [] HENT: Denies nasal congestion or sore throat. [] Respiratory: Denies cough or shortness of breath. [] Cardiovascular: Denies chest pain or edema. [] GI: Denies abdominal pain, nausea, vomiting, bloody stools or diarrhea. [] : Denies dysuria. [] Musculoskeletal: Denies back pain or joint pain. [] Integument: Denies rash. [] Neurologic: Denies headache, focal weakness or sensory changes. [] Endocrine: Denies polyuria or polydipsia. [] Lymphatic: Denies swollen glands. [] Psychiatric: Denies depression or anxiety. [] Heart Score: Risk Factors: Risk Factors: DM, Current or recent (<one month) smoker, HTN, HLP, family history of CAD, obesity. Risk Scores: Score 0 - 3: 2.5% MACE over next 6 weeks - Discharge Home Score 4 - 6: 20.3% MACE over next 6 weeks - Admit for Clinical Observation Score 7 - 10: 72.7% MACE over next 6 weeks - Early Invasive Strategies Current Medications: Current Medications Medications (Trade) Dose Ordered Sig/Kevin Start Time Stop Time Status Last Admin Dose Admin Phenobarbital (Luminal) 65 mg 1X ONCE 04/01/20 19:30 04/01/20 19:31 UNV Propofol (Diprivan) 200 mg 1X ONCE 04/01/20 19:15 04/01/20 19:19 DC Ringer's Solution 1,000 ml @ 1,000 mls/hr 1X ONCE 04/01/20 19:30 04/01/20 20:29 Allergies: Allergies: Allergies Coded Allergies Type Severity Reaction Last Updated Verified No Known Drug Allergies 07/26/19 No Physical Exam: PE: Constitutional: Well developed, well nourished, no acute distress, non-toxic appearance. [] HENT: Normocephalic, atraumatic, bilateral external ears normal, oropharynx moist, no oral exudates, nose normal. [] Eyes: PERRLA, EOMI, conjunctiva normal, no discharge. [] Neck: Normal range of motion, no tenderness, supple, no stridor. [] Cardiovascular:Heart rate regular rhythm, no murmur [] Lungs & Thorax: Bilateral breath sounds clear to auscultation [] Abdomen: Bowel sounds normal, soft, no tenderness, no masses, no pulsatile masses. [] Skin: Warm, dry, no erythema, no rash. [] Back: No tenderness, no CVA tenderness. [] Extremities: No tenderness, no cyanosis, no clubbing, ROM intact, no edema. [] Neurologic: Alert and oriented X 3, normal motor function, normal sensory function, no focal deficits noted. [] Psychologic: Affect normal, judgement normal, mood normal. [] Current Patient Data: Labs: Laboratory Tests Test 04/01/20 19:15 04/01/20 19:25 04/01/20 19:35 White Blood Count 6.0 x10^3/uL Red Blood Count 3.75 x10^6/uL Hemoglobin 11.5 g/dL Hematocrit 34.5 % Mean Corpuscular Volume 92 fL Mean Corpuscular Hemoglobin 31 pg Mean Corpuscular Hemoglobin Concent 33 g/dL Red Cell Distribution Width 16.4 % Platelet Count 195 x10^3/uL Neutrophils (%) (Auto) 45 % Lymphocytes (%) (Auto) 40 % Monocytes (%) (Auto) 12 % Eosinophils (%) (Auto) 2 % Basophils (%) (Auto) 1 % Neutrophils # (Auto) 2.7 x10^3/uL Lymphocytes # (Auto) 2.4 x10^3/uL Monocytes # (Auto) 0.7 x10^3/uL Eosinophils # (Auto) 0.1 x10^3/uL Basophils # (Auto) 0.1 x10^3/uL Prothrombin Time 11.9 SEC Prothromb Time International Ratio 0.9 Sodium Level 137 mmol/L Potassium Level 4.4 mmol/L Chloride Level 102 mmol/L Carbon Dioxide Level 21 mmol/L Anion Gap 14 Blood Urea Nitrogen 17 mg/dL Creatinine 1.2 mg/dL Estimated GFR (Cockcroft-Gault) 51.4 BUN/Creatinine Ratio 14 Glucose Level 140 mg/dL Lactic Acid Level 7.7 mmol/L Calcium Level 8.9 mg/dL Phosphorus Level 3.3 mg/dL Magnesium Level 2.3 mg/dL Total Bilirubin 0.1 mg/dL Aspartate Amino Transf (AST/SGOT) 28 U/L Alanine Aminotransferase (ALT/SGPT) 23 U/L Alkaline Phosphatase 66 U/L Creatine Kinase 108 U/L Total Protein 7.7 g/dL Albumin 4.0 g/dL Albumin/Globulin Ratio 1.1 Lipase 66 U/L Ethyl Alcohol Level < 10 mg/dL Urine Opiates Screen Neg Urine Methadone Screen Neg Urine Barbiturates Neg Urine Phencyclidine Screen Neg Urine Amphetamine/Methamphetamine Neg Urine Benzodiazepines Screen Pos Urine Cocaine Screen Neg Urine Cannabinoids Screen Neg Urine Ethyl Alcohol Neg Bedside Urine HCG, Qualitative Hcg negative Current Medications Medications (Trade) Dose Ordered Sig/Kevin Route PRN Reason Start Time Stop Time Status Last Admin Dose Admin Propofol (Diprivan) 200 mg 1X ONCE IV 04/01/20 19:15 04/01/20 19:19 DC Phenobarbital (Luminal) 65 mg Q8HRS IVP 04/01/20 20:00 04/01/20 19:19 DC Ringer's Solution 1,000 ml @ 1,000 mls/hr 1X ONCE IV 04/01/20 19:30 04/01/20 20:29 DC 04/01/20 19:32 Phenobarbital (Luminal) 65 mg 1X ONCE IM 04/01/20 19:30 04/01/20 19:42 DC 04/01/20 20:12 Ondansetron HCl (Zofran) 4 mg 1X ONCE IVP 04/01/20 20:30 04/01/20 20:31 UNV Acetaminophen (Tylenol) 1,000 mg 1X ONCE PO 04/01/20 20:30 04/01/20 20:31 UNV Vital Signs: Vital Signs Date Time Temp Pulse Resp B/P (MAP) Pulse Ox O2 Delivery O2 Flow Rate FiO2 04/01/20 19:05 98.9 122 12 116/71 (86) 98 Room Air 98.9 EKG: EKG: EKG consistent with normal sinus rhythm. Ventricular rate of 82 bpm. [place] normal. Intervals normal. Flipped T wave in lead III. Overall nonspecific EKG. [] Radiology/Procedures: Radiology/Procedures: [] Course & Med Decision Making: Course & Med Decision Making Pertinent Labs and Imaging studies reviewed. (See chart for details) Patient is a 34-year-old female who arrives via EMS for seizure-like activity. Patient's initial GCS on arrival was (10) [id number] after receiving 10 mg of Versed in route intramuscularly. Patient was monitored closely and did show signs of mental status improvement while in the emergency department. Vital signs notable for tachycardia. Patient does admit to drinking daily to me. Alcohol level currently negative. Patient was started on a phenobarbital taper with intramuscular injection. CT head neck nonacute. Maner of labs grossly unremarkable. She does have a significantly elevated lactate of 7.7 however I do feel this is related to her recent seizure-like activity versus infection. Blood cultures antibiotics will be deferred. Fluid resuscitation initiated. Patient will require hospitalization. She has shown no signs of clinical deteri oration, mental status change, or seizure-like activity while in the ER. Dragon Disclaimer: [place] Disclaimer: This electronic medical record was generated, in whole or in part, using a voice recognition dictation system. Departure Departure Impression: Primary Impression: Alcohol withdrawal seizure Qualified Codes: F10.239 - Alcohol dependence with withdrawal, unspecified; R56.9 - Unspecified convulsions Additional Impression: Lactic acidemia Disposition: ADMITTED INPATIENT Condition: STABLE Referrals: NO PCP (PCP) Justicifation of Admission Dx: Justifications for Admission: Justification of Admission Dx: Yes Comments: ETOH withdrawal with seizures ALVARADO NEWTON DO Apr 01, 2020 19:28
[2020-04-01 19:29] LABS: BASO # 0.1 x10^3/uL (0.0-0.2); BASO % 1 % (0-3); EOS # 0.1 x10^3/uL (0.0-0.7); EOS % 2 % (0-3); HEMATOCRIT 34.5 % (36.0-47.0); HEMOGLOBIN 11.5 g/dL (12.0-15.5); LYMPH # 2.4 x10^3/uL (1.0-4.8); LYMPH % 40 % (24-48); MEAN CORPUSCULAR HEMOGLOBIN 31 pg (25-35); MEAN CORPUSCULAR HGB CONC 33 g/dL (31-37); MEAN CORPUSCULAR VOLUME 92 fL (79-100); MONO # 0.7 x10^3/uL (0.0-1.1); MONO % 12 % (0-9); NEUT # 2.7 x10^3/uL (1.8-7.7); NEUT % 45 % (31-73); PLATELET COUNT 195 x10^3/uL (140-400); RED BLOOD COUNT 3.75 x10^6/uL (3.50-5.40); RED CELL DISTRIBUTION WIDTH 16.4 % (11.5-14.5)
[2020-04-01] MEDS ORDERED: IV RINGERS,LACTATED 1000ML 1,000 ML IV ONE (19:30)
[2020-04-01] MEDS ORDERED: PHENobarbital 65 MG/ML VIAL. IM ONE (19:30)
[2020-04-01 19:38] LABS: PROTHROMBIN TIME PATIENT 11.9 SEC (11.7-14.0)
[2020-04-01 19:41] LABS: BARBITURATES NEG (NEG); BENZODIAZEPINES POS (NEG); CANNABINOIDS NEG (NEG); COCAINE NEG (NEG); METHADONE NEG (NEG); OPIATES NEG (NEG); PHENCYCLIDINE NEG (NEG)
[2020-04-01 19:42] LABS: CALCIUM 8.9 mg/dL (8.5-10.1); CREATININE 1.2 mg/dL (0.6-1.0); GFR 51.4; POTASSIUM 4.4 mmol/L (3.5-5.1)
[2020-04-01 19:42] LABS: AMPHETAMINE/METHAMPHETAMINE NEG (NEG)
--- NOTE | 2020-04-01 19:48 | RAD ---
CHEST AP ONLY History: Seizure Comparison: May 24, 2019 Findings: Single view of the chest is submitted. There is no infiltrate, pneumothorax, or effusion. The pericardial cardiac silhouette is within normal limits in size. Gas beneath the left hemidiaphragm is most likely in bowel. Impression: 1. There is no radiographic evidence of acute cardiopulmonary disease. Electronically signed by: Konrad Gray MD (04/01/2020 7:45 PM) [facility]
[2020-04-01 19:56] LABS: ALBUMIN/GLOBULIN RATIO 1.1 (1.0-1.7); MAGNESIUM 2.3 mg/dL (1.8-2.4); PHOSPHORUS 3.3 mg/dL (2.6-4.7); TOTAL BILIRUBIN 0.1 mg/dL (0.2-1.0); TOTAL PROTEIN 7.7 g/dL (6.4-8.2)
[2020-04-01] MEDS ORDERED: PHENobarbital 65 MG/ML VIAL. IVP SCH (20:00)
--- NOTE | 2020-04-01 20:16 | RAD ---
CT head and cervical spine without contrast History: Seizure Technique: Noncontrast CT imaging was performed of the head and cervical spine. Multiplanar reconstruction images are submitted. Exposure: One or more of the following individualized dose reduction techniques were utilized for this examination: 1. Automated exposure control 2. Adjustment of the mA and/or kV according to patient size 3. Use of iterative reconstruction technique. Head CT Comparison: None Findings: No acute extra-axial or parenchymal hemorrhage is identified. There is no significant intra-axial mass effect, midline shift, or extra-axial fluid collection. The fay-white differentiation of the major vascular territories is preserved. The ventricles, sulci, and cisterns are within normal limits in size and configuration. The mastoid air cells and the visualized paranasal sinuses are aerated. There is no significant focal calvarial abnormality. Impression: 1. No acute intracranial abnormality is identified. Cervical spine CT Comparison: None Findings: No acute cervical spine fracture is identified. Vertebral body stature and AP alignment are within normal limits. Atlanto-axial distance is within normal limits. There is appropriate alignment of lateral masses of C1 relative to C2. Occipital condylar-C1 relationship is maintained. There is dental caries involving limited visualized most posterior left maxillary tooth. Impression: 1. No acute cervical spine fracture is identified. Electronically signed by: Konrad Gray MD (04/01/2020 8:13 PM) [facility]
[2020-04-01] MEDS ORDERED: ONDANSETRON PF 4 MG/2 ML VIAL. IVP ONE (20:30)
[2020-04-01] MEDS ORDERED: ACETAMINOPHEN 500 MG TABLET PO ONE (20:30)
[2020-04-01] MEDS ORDERED: ONDANSETRON PF 4 MG/2 ML VIAL. IV PRN (21:00)
[2020-04-01] MEDS ORDERED: PROPRANOLOL 10 MG TABLET. PO PRN (21:15)
[2020-04-01 23:30] VITALS: BP 114/71
[2020-04-01] MEDS ORDERED: diphenhydrAMINE 50 MG/ML VIAL IVP ONE (23:30)
[2020-04-01] MEDS ORDERED: METOCLOPRAMIDE HCL 10 MG/2 ML VIAL. IVP ONE (23:30)
--- NOTE | 2020-04-02 00:31 | EKG ---
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
[2020-04-02] MEDS ORDERED: SERT100T8 PO (00:51)
[2020-04-02] MEDS ORDERED: TRAZ-118 PO (00:51)
[2020-04-02] MEDS ORDERED: PROP10TA PO (00:51)
[2020-04-02] MEDS ORDERED: DOXE50CA PO (00:51)
[2020-04-02] MEDS ORDERED: ALPR0.5T6 PO (00:51)
--- NOTE | 2020-04-02 01:35 | NUR ---
The patient, NUPUR MIMS, 34 y/o, F admitted by KARINA MARRERO MD, was given written information regarding hospital policies, unit procedures and contact persons. Valuables were checked and has only clothes with her.
[2020-04-02 03:00] VITALS: BP 109/64
[2020-04-02 06:32] LABS: CREATININE 0.8 mg/dL (0.6-1.0); GFR 82.1; POTASSIUM 3.9 mmol/L (3.5-5.1)
[2020-04-02 07:00] VITALS: BP 120/71
--- NOTE | 2020-04-02 10:17 | PDOC1 ---
History and Physical Date of Admission Date of Admission DATE: 04/02/20 TIME: 10:15 Identification/Chief Complaint Chief Complaint seen in er with possible seizure 34-year-old female with PMH high cholesterol, alcohol abuse who presents with a chief complaint of seizure-like activity. 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 she was unresponsive and had upper extremity tonic-clonic movements.//became somewhat agitated in route and they did administer 10 mg total of intramuscular Versed. patient has not gone on any fire runs today. Past Medical History Past Medical History Past Medical History Past Medical History Past Medical History: Anxiety, Depression, Other Additional Past Medical Histor: fatty liver,ETOH ABUSE/WITHDRAWAL Past Surgical History: Tonsillectomy Smoking Status: Current Every Day Smoker Alcohol Use: Heavy Drug Use: None fhx copd Cardiovascular: No pertinent hx Pulmonary: No pertinent hx GI: No pertinent hx Heme/Onc: No pertinent hx Hepatobiliary: No pertinent hx Psych: Anxiety, Addictions, Depression Rheumatologic: No pertinent hx Infectious disease: No pertinent hx Renal/: No pertinent hx Endocrine: No pertinent hx Past Surgical History Past Surgical History: Tonsillectomy Family History Family History: Depression, High Cholestrol, Hypertension Social History Smoke: No ALCOHOL: heavy Drugs: None Current Problem List Problem List Problems Medical Problems: (1) Alcohol withdrawal seizure Status: Acute (2) Lactic acidemia Status: Acute Current Medications Current Medications Current Medications Propofol (Diprivan) 200 mg 1X ONCE IV ; Start 04/01/20 at 19:15; Stop 04/01/20 at 19:19; Status DC Phenobarbital (Luminal) 65 mg Q8HRS IVP ; Start 04/01/20 at 20:00; Stop 04/01/20 at 19:19; Status DC Ringer's Solution 1,000 ml @ 1,000 mls/hr 1X ONCE IV Last administered on 04/01/20at 19:32; Start 04/01/20 at 19:30; Stop 04/01/20 at 20:29; Status DC Phenobarbital (Luminal) 65 mg 1X ONCE IM Last administered on 04/01/20at 20:12; Start 04/01/20 at 19:30; Stop 04/01/20 at 19:42; Status DC Ondansetron HCl (Zofran) 4 mg 1X ONCE IVP Last administered on 04/01/20at 20:44; Start 04/01/20 at 20:30; Stop 04/01/20 at 20:47; Status DC Acetaminophen (Tylenol) 1,000 mg 1X ONCE PO Last administered on 04/01/20at 20:44; Start 04/01/20 at 20:30; Stop 04/01/20 at 20:47; Status DC Ondansetron HCl (Zofran) 4 mg PRN Q8HRS PRN IV NAUSEA/VOMITING 1ST CHOICE; Start 04/01/20 at 21:00; Stop 04/02/20 at 20:59 Lorazepam (Ativan Inj) 1 mg PRN Q2HRS PRN IVP ANXIETY / AGITATION Last ad ministered on 04/01/20at 23:35; Start 04/01/20 at 21:00 Propranolol HCl (Inderal) 10 mg PRN Q12HR PRN PO SEE COMMENTS Last administered on 04/02/20at 10:06; Start 04/01/20 at 21:15 Metoclopramide HCl (Reglan Vial) 10 mg 1X ONCE IVP Last administered on at 23:35; Start 04/01/20 at 23:30; Stop 04/01/20 at 23:31; Status DC Diphenhydramine HCl (Benadryl) 50 mg 1X ONCE IVP Last administered on 04/01/20at 23:35; Start 04/01/20 at 23:30; Stop 04/01/20 at 23:31; Status DC Active Scripts Active Reported Doxepin Hcl 50 Mg Capsule 1 Cap PO QHS Propranolol Hcl 10 Mg Tablet 1 Tab PO PRN TID PRN Trazodone Hcl 50 Mg Tablet 1 Tab PO PRN QHS PRN Sertraline Hcl 100 Mg Tablet 1 Tab PO DAILY Alprazolam 0.5 Mg Tablet 1 Tab PO PRN QHS PRN Allergies Allergies: Coded Allergies: No Known Drug Allergies (Unverified , 07/26/19) ROS Review of System Constitutional: Denies fever or chills. [] Eyes: Denies change in visual acuity. [] HENT: Denies nasal congestion or sore throat. [] Respiratory: Denies cough or shortness of breath. [] Cardiovascular: Denies chest pain or edema. [] GI: Denies abdominal pain, nausea, vomiting, bloody stools or diarrhea. [] : Denies dysuria. [] Musculoskeletal: Denies back pain or joint pain. [] Integument: Denies rash. [] Neurologic: Denies headache, focal weakness or sensory changes. [] Endocrine: Denies polyuria or polydipsia. [] Lymphatic: Denies swollen glands. [] Psychiatric: Denies depression or anxiety. [] 14 pt ros otherwise neg ALLERGY AND IMMUNOLOGY: No: Hives, Insect Bite Sensitivity, Itchy/Watery Eyes, Nasal Congestion, Post Nasal Drip, Seasonal Allergies, Other Hematological and Lymphatic: No: Bleeding Problems, Blood Clots, Blood Transfusions, Brusing, Night Sweats, Pallor, Swollen Lymph Nodes, Other Respiratory: No: Cough, Hemoptysis, Orthopnea, Pleuritic Pain, Shortness of breath, SOB with excertion, Sputum Changes, Stridor, Tachypnea, Wheezing, Other Gastrointestinal: Yes Nausea Physical Exam Physical Exam Constitutional: Well developed, well nourished, no acute distress, non-toxic appearance. [] HENT: Normocephalic, atraumatic, bilateral external ears normal, oropharynx moist, no oral exudates, nose normal. [] Eyes: PERRLA, EOMI, conjunctiva normal, no discharge. [] Neck: Normal range of motion, no tenderness, supple, no stridor. [] Cardiovascular:Heart rate regular rhythm, no murmur [] Lungs & Thorax: Bilateral breath sounds clear to auscultation [] Abdomen: Bowel sounds normal, soft, no tenderness, no masses, no pulsatile masses. [] Skin: Warm, dry, no erythema, no rash. [] Back: No tenderness, no CVA tenderness. [] Extremities: No tenderness, no cyanosis, no clubbing, ROM intact, no edema. [] Neurologic: Alert and oriented X 3, normal motor function, normal sensory function, no focal deficits noted. [] Psychologic: Affect normal, judgement normal, mood normal. [] General: Alert, Oriented X3, Cooperative, No acute distress HEENT: Atraumatic, EOMI, Mucous membr. moist/pink Lungs: Clear to auscultation, Normal air movement Heart: RRR Breasts: Not examined Abdomen: Normal bowel sounds, Soft Rectal Exam: not examined PELVIC: Examination not indicated Extremities: No cyanosis Neuro: Normal speech, Cranial nerves 3-12 NL Psych/Mental Status: Mental status NL, Mood NL Vitals Vitals Vital Signs Date Time Temp Pulse Resp B/P (MAP) Pulse Ox O2 Delivery O2 Flow Rate FiO2 04/02/20 10:06 81 120/71 04/02/20 08:00 Room Air 04/02/20 07:00 98.2 18 96 98.2 Labs Labs Laboratory Tests Test 04/01/20 19:15 04/01/20 19:25 04/01/20 19:35 04/02/20 05:45 White Blood Count 6.0 x10^3/uL (4.0-11.0) Red Blood Count 3.75 x10^6/uL (3.50-5.40) Hemoglobin 11.5 g/dL (12.0-15.5) Hematocrit 34.5 % (36.0-47.0) Mean Corpuscular Volume 92 fL (79-100) Mean Corpuscular Hemoglobin 31 pg (25-35) Mean Corpuscular Hemoglobin Concent 33 g/dL (31-37) Red Cell Distribution Width 16.4 % (11.5-14.5) Platelet Count 195 x10^3/uL (140-400) Neutrophils (%) (Auto) 45 % (31-73) Lymphocytes (%) (Auto) 40 % (24-48) Monocytes (%) (Auto) 12 % (0-9) Eosinophils (%) (Auto) 2 % (0-3) Basophils (%) (Auto) 1 % (0-3) Neutrophils # (Auto) 2.7 x10^3/uL (1.8-7.7) Lymphocytes # (Auto) 2.4 x10^3/uL (1.0-4.8) Monocytes # (Auto) 0.7 x10^3/uL (0.0-1.1) Eosinophils # (Auto) 0.1 x10^3/uL (0.0-0.7) Basophils # (Auto) 0.1 x10^3/uL (0.0-0.2) Prothrombin Time 11.9 SEC (11.7-14.0) Prothromb Time International Ratio 0.9 (0.8-1.1) Sodium Level 137 mmol/L (136-145) 133 mmol/L (136-145) Potassium Level 4.4 mmol/L (3.5-5.1) 3.9 mmol/L (3.5-5.1) Chloride Level 102 mmol/L (98-107) 103 mmol/L (98-107) Carbon Dioxide Level 21 mmol/L (21-32) 20 mmol/L (21-32) Anion Gap 14 (6-14) 10 (6-14) Blood Urea Nitrogen 17 mg/dL (7-20) 13 mg/dL (7-20) Creatinine 1.2 mg/dL (0.6-1.0) 0.8 mg/dL (0.6-1.0) Estimated GFR (Cockcroft-Gault) 51.4 82.1 BUN/Creatinine Ratio 14 (6-20) Glucose Level 140 mg/dL (70-99) 86 mg/dL (70-99) Lactic Acid Level 7.7 mmol/L (0.4-2.0) Calcium Level 8.9 mg/dL (8.5-10.1) 8.0 mg/dL (8.5-10.1) Phosphorus Level 3.3 mg/dL (2.6-4.7) Magnesium Level 2.3 mg/dL (1.8-2.4) Total Bilirubin 0.1 mg/dL (0.2-1.0) Aspartate Amino Transf (AST/SGOT) 28 U/L (15-37) Alanine Aminotransferase (ALT/SGPT) 23 U/L (14-59) Alkaline Phosphatase 66 U/L (46-116) Creatine Kinase 108 U/L (26-192) Total Protein 7.7 g/dL (6.4-8.2) Albumin 4.0 g/dL (3.4-5.0) Albumin/Globulin Ratio 1.1 (1.0-1.7) Lipase 66 U/L (73-393) Ethyl Alcohol Level < 10 mg/dL (0-10) Urine Opiates Screen Neg (NEG) Urine Methadone Screen Neg (NEG) Urine Barbiturates Neg (NEG) Urine Phencyclidine Screen Neg (NEG) Urine Amphetamine/Methamphetamine Neg (NEG) Urine Benzodiazepines Screen Pos (NEG) Urine Cocaine Screen Neg (NEG) Urine Cannabinoids Screen Neg (NEG) Urine Ethyl Alcohol Neg (NEG) Bedside Urine HCG, Qualitative Hcg negative (Negative) Laboratory Tests Test 04/01/20 19:15 04/01/20 19:25 04/01/20 19:35 04/02/20 05:45 White Blood Count 6.0 x10^3/uL (4.0-11.0) Red Blood Count 3.75 x10^6/uL (3.50-5.40) Hemoglobin 11.5 g/dL (12.0-15.5) Hematocrit 34.5 % (36.0-47.0) Mean Corpuscular Volume 92 fL (79-100) Mean Corpuscular Hemoglobin 31 pg (25-35) Mean Corpuscular Hemoglobin Concent 33 g/dL (31-37) Red Cell Distribution Width 16.4 % (11.5-14.5) Platelet Count 195 x10^3/uL (140-400) Neutrophils (%) (Auto) 45 % (31-73) Lymphocytes (%) (Auto) 40 % (24-48) Monocytes (%) (Auto) 12 % (0-9) Eosinophils (%) (Auto) 2 % (0-3) Basophils (%) (Auto) 1 % (0-3) Neutrophils # (Auto) 2.7 x10^3/uL (1.8-7.7) Lymphocytes # (Auto) 2.4 x10^3/uL (1.0-4.8) Monocytes # (Auto) 0.7 x10^3/uL (0.0-1.1) Eosinophils # (Auto) 0.1 x10^3/uL (0.0-0.7) Basophils # (Auto) 0.1 x10^3/uL (0.0-0.2) Prothrombin Time 11.9 SEC (11.7-14.0) Prothromb Time International Ratio 0.9 (0.8-1.1) Sodium Level 137 mmol/L (136-145) 133 mmol/L (136-145) Potassium Level 4.4 mmol/L (3.5-5.1) 3.9 mmol/L (3.5-5.1) Chloride Level 102 mmol/L (98-107) 103 mmol/L (98-107) Carbon Dioxide Level 21 mmol/L (21-32) 20 mmol/L (21-32) Anion Gap 14 (6-14) 10 (6-14) Blood Urea Nitrogen 17 mg/dL (7-20) 13 mg/dL (7-20) Creatinine 1.2 mg/dL (0.6-1.0) 0.8 mg/dL (0.6-1.0) Estimated GFR (Cockcroft-Gault) 51.4 82.1 BUN/Creatinine Ratio 14 (6-20) Glucose Level 140 mg/dL (70-99) 86 mg/dL (70-99) Lactic Acid Level 7.7 mmol/L (0.4-2.0) Calcium Level 8.9 mg/dL (8.5-10.1) 8.0 mg/dL (8.5-10.1) Phosphorus Level 3.3 mg/dL (2.6-4.7) Magnesium Level 2.3 mg/dL (1.8-2.4) Total Bilirubin 0.1 mg/dL (0.2-1.0) Aspartate Amino Transf (AST/SGOT) 28 U/L (15-37) Alanine Aminotransferase (ALT/SGPT) 23 U/L (14-59) Alkaline Phosphatase 66 U/L (46-116) Creatine Kinase 108 U/L (26-192) Total Protein 7.7 g/dL (6.4-8.2) Albumin 4.0 g/dL (3.4-5.0) Albumin/Globulin Ratio 1.1 (1.0-1.7) Lipase 66 U/L (73-393) Ethyl Alcohol Level < 10 mg/dL (0-10) Urine Opiates Screen Neg (NEG) Urine Methadone Screen Neg (NEG) Urine Barbiturates Neg (NEG) Urine Phencyclidine Screen Neg (NEG) Urine Amphetamine/Methamphetamine Neg (NEG) Urine Benzodiazepines Screen Pos (NEG) Urine Cocaine Screen Neg (NEG) Urine Cannabinoids Screen Neg (NEG) Urine Ethyl Alcohol Neg (NEG) Bedside Urine HCG, Qualitative Hcg negative (Negative) Images Images CT head and cervical spine without contrast History: Seizure Technique: Noncontrast CT imaging was performed of the head and cervical spine. Multiplanar reconstruction images are submitted. Exposure: One or more of the following individualized dose reduction techniques were utilized for this examination: 1. Automated exposure control 2. Adjustment of the mA and/or kV according to patient size 3. Use of iterative reconstruction technique. Head CT Comparison: None Findings: No acute extra-axial or parenchymal hemorrhage is identified. There is no significant intra-axial mass effect, midline shift, or extra-axial fluid collection. The fay-white differentiation of the major vascular territories is preserved. The ventricles, sulci, and cisterns are within normal limits in size and configuration. The mastoid air cells and the visualized paranasal sinuses are aerated. There is no significant focal calvarial abnormality. Impression: 1. No acute intracranial abnormality is identified. Cervical spine CT Comparison: None Findings: No acute cervical spine fracture is identified. Vertebral body stature and AP alignment are within normal limits. Atlanto-axial distance is within normal limits. There is appropriate alignment of lateral masses of C1 relative to C2. Occipital condylar-C1 relationship is maintained. There is dental caries involving limited visualized most posterior left maxillary tooth. Impression: 1. No acute cervical spine fracture is identified. Electronically signed by: Ivett Allen MD (04/01/2020 8:13 PM) [facility] DICTATED and SIGNED BY: IVETT ALLEN MD DATE: 04/01/202012 VTE Prophylaxis Ordered VTE Prophylaxis Devices: No VTE Pharmacological Prophylaxi: Yes Assessment/Plan Assessment/Plan Impression: 1. Acute witnessed generalized seizure, likely sec to alcohol withdrawal 2. No acute intracranial abnormality is identified. by ct head 3. hx severe alcohol abuse 4. LACTIC ACIDOSIS SEC # 1 plan admit CVC BED SEIZURE PRECAUTIONS NEUROLOGY CONSULT DVT PROPHYLAXIS [facility] PROTOCOL EMPERIC IV ANTIBIOTICS Justifications for Admission Other Justification JOSELYN DIAL MD Apr 02, 2020 10:17
[2020-04-02] MEDS ORDERED: cloNIDine HCL 0.1 MG TABLET PO PRN (10:30)
[2020-04-02] MEDS ORDERED: diphenhydrAMINE 50 MG/ML VIAL IVP PRN (10:30)
[2020-04-02] MEDS ORDERED: HALOPERIDOL LACTATE 5 MG/ML VIAL. IVP PRN (10:30)
[2020-04-02 11:00] VITALS: BP 117/74
[2020-04-02 11:13] LABS: BASO % 1 % (0-3); EOS # 0.1 x10^3/uL (0.0-0.7); EOS % 1 % (0-3); HEMATOCRIT 35.1 % (36.0-47.0); HEMOGLOBIN 11.8 g/dL (12.0-15.5); LYMPH # 1.5 x10^3/uL (1.0-4.8); LYMPH % 31 % (24-48); MEAN CORPUSCULAR HEMOGLOBIN 31 pg (25-35); MEAN CORPUSCULAR HGB CONC 34 g/dL (31-37); MEAN CORPUSCULAR VOLUME 91 fL (79-100); MONO # 0.7 x10^3/uL (0.0-1.1); MONO % 13 % (0-9); NEUT # 2.8 x10^3/uL (1.8-7.7); NEUT % 55 % (31-73); PLATELET COUNT 179 x10^3/uL (140-400); RED BLOOD COUNT 3.86 x10^6/uL (3.50-5.40); RED CELL DISTRIBUTION WIDTH 16.4 % (11.5-14.5); WHITE BLOOD COUNT 5.1 x10^3/uL (4.0-11.0)
[2020-04-02] MEDS: ACETAMINOPHEN 500 MG TABLET PO PRN (11:37)
[2020-04-02] MEDS: MULTIVIT INFUSN,ADULT 4,VIT K 10 ML, THIAMINE INJ 100 MG, FOLIC ACID INJ 1 MG in IV NOR... IV SCH (11:38)
[2020-04-02 15:00] VITALS: BP 132/86
[2020-04-02 19:49] VITALS: BP 133/79
[2020-04-02] MEDS ORDERED: cefTRIAXone IV Push 1 GM VIAL. IVP SCH (20:00)
--- NOTE | 2020-04-02 20:20 | NUR ---
Dr. Heller here to see Patient and informed of Patient request for home medications for sleep. Dr. Heller stated he would write orders.
[2020-04-02] MEDS ORDERED: DOXEPIN HCL 10 MG CAPSULE. PO SCH (21:00)
[2020-04-02] MEDS: traZODone 100 MG TABLET. PO SCH (21:38)
--- NOTE | 2020-04-02 21:39 | NUR ---
Medications given per order for Patient request for "Sleeping medications."
--- NOTE | 2020-04-02 22:11 | CONS ---
DATE OF CONSULTATION: 04/02/2020 REFERRING PHYSICIAN: Norris Jovel MD REASON FOR CONSULTATION: Seizure. 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 She was at work and went outside to talk on her phone and fell on the ground. She suddenly started to feel very dizzy. The dizziness did not resolve. She wanted to go inside to get some of her coworkers to help, but never made it. She was found unresponsive and having upper extremity tonic-clonic movements. En route, she became somewhat agitated and was given 10 mg total of intramuscular Versed. She does not have a history of seizure. She reports that she had gone about 10 days without any alcohol. Prior to that, she had gone for 4 days where she would drink a pint over the course of the day. She does not usually drink every single day and often will go a week or two without liquor. She did discontinue sertraline several days ago. She had been on it for several months for depression. She felt it was not helpful and actually making her feel worse. Intermittently, she uses trazodone and doxepin at night to help with sleep. She will use propranolol for anxiety at times if it is very severe, she will use Xanax, but does not use Xanax very often. PAST MEDICAL HISTORY: 1. Anxiety. 2. Depression. 3. Tonsillectomy. 4. History of tobacco abuse. 5. Fatty liver. ALLERGIES: No known allergies to drugs. MEDICATIONS PRIOR TO ADMISSION: Trazodone 100-200 mg at night as needed, doxepin 10 mg at night as needed, sertraline 100 mg, which she discontinued several days ago, propranolol 10 mg as needed and alprazolam 0.5 mg at night as needed. FAMILY HISTORY: Depression, high cholesterol and hypertension. SOCIAL HISTORY: She quit smoking about 10 days ago. She intermittently drinks a large amount of alcohol. She does not use recreational drugs. 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 She does not have any children. REVIEW OF SYSTEMS: She does not have headache. There has been no change of vision or hearing. She has not had any cognitive loss. She has been able to chew and swallow. She does not have nose or sinus trouble. She has not had shortness of breath, chest or abdominal pain. Does not have bone or joint pain. There has been no fever or rash. She does not have any focal numbness or weakness. She has not noted any coordination change. She does not have excessive bruising, bleeding or swelling. She does have a history of depression. PHYSICAL EXAMINATION: VITAL SIGNS: The blood pressure was 132/86, pulse 80, respirations 18, temperature 98 degrees Celsius. Oximetry was 96% on room air. Her weight was 65.8 kilograms, height 67 inches with a calculated body mass index of 22.7. GENERAL: She was alert, awake and cooperative. Speech was fluent and clear. She had a good fund of recent and remote knowledge. Attention and concentration was intact. She appeared well groomed and well nourished. She was fully oriented. NEUROLOGIC: Examination of the cranial nerves revealed visual day were full to confrontation. Extraocular movements were intact. The eyes were conjugate. Pursuit movements were smooth and saccadic eye movements were without dysmetria. Pupils were 4 mm and reactive. Facial sensation was intact. The muscles of mastication and facial expression were symmetric. Hearing was intact to finger rub. The palate arched symmetrically and the tongue was midline with full motion. Sternocleidomastoid and trapezius were powerful. Muscle bulk and tone was normal. There was no arm drift or abnormal movement. There was no leg drift. The power was full and symmetric in the upper and lower extremities. Reflexes were 2/4 and symmetric in the upper and lower extremities. The toes were downgoing. Coordination testing with [id number], [id number], fine motor and rapid alternating movements was well performed. The sensory exam was intact to pain, light touch, proprioception, graphesthesia, cold thermal and vibration. There was no extinction to double simultaneous stimulation. Gait was normal based and steady. She could heel, toe, and tandem walk. Romberg stance was negative. NECK: Auscultation of the carotid arteries did not reveal a bruit. HEART: Rhythm was regular without a murmur. EXTREMITIES: Peripheral pulses were 2/4 and symmetric in the hands and feet. There was no edema or cyanosis of the extremities. LABORATORY RESULTS: CBC was performed 04/02/2020 revealing a normal white blood cell count and platelet count. Hemoglobin was 11.8 and hematocrit 35.1. Chemistries were performed on 04/02/2020 revealing a sodium low at 133, normal potassium, normal chloride and low CO2 at 20. BUN and creatinine were normal, and GFR calculated at 82.1. Glucose was normal. Calcium was low at 8. Lactic acid was initially elevated on 04/01/2020 to 7.7, but came down to 1.5. Liver enzymes were not elevated. Lipase was not elevated. CPK was not elevated. Alcohol was not detected. Urine drug screen on 04/01/2020 was negative. HCG was negative on that same date. DIAGNOSTIC RESULTS: CT scan of the head and cervical spine was performed without contrast on 04/01/2020. This did not reveal an acute intracranial abnormality or a cervical spine abnormality. Chest x-ray was performed on 04/01/2020 revealing no evidence of acute cardiopulmonary disease. 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 She did have a prodrome with feeling extremely dizzy, but then was found on the ground with convulsive activity. It is not clear how long this lasted. She appeared to be postictal following this event, but is now back to her baseline. I am not convinced this is actually an alcohol withdrawal seizure. She had not been drinking for a very long and had stopped about 10 days ago. I am not aware that sertraline would cause seizures if suddenly withdrawn. I do not feel that further investigation would be warranted. RECOMMENDATIONS: I would like to proceed with an MRI brain with and without contrast to look for a focus that could provoke seizure. As an outpatient, she could obtain an EEG. Following these studies, she can follow up with Dr. Chanel as an outpatient. I appreciate being involved in her care. CELESTE LAND MD DR: DORENE/maxine JOB#: [id number] / [id number] SONIA Honeycutt MD
[2020-04-02 23:38] VITALS: BP 132/84
[2020-04-03 03:52] VITALS: BP 120/78
--- NOTE | 2020-04-03 05:22 | NUR ---
Patient has rested quietly this shift. No seizure activity noted, no c/o pain.
[2020-04-03 07:00] VITALS: BP 131/89
[2020-04-03] MEDS: ACETAMINOPHEN 500 MG TABLET PO PRN ×2 (07:57→21:51)
[2020-04-03] MEDS: MULTIVIT INFUSN,ADULT 4,VIT K 10 ML, THIAMINE INJ 100 MG, FOLIC ACID INJ 1 MG in IV NOR... IV SCH (08:36)
[2020-04-03 11:00] VITALS: BP 130/87
[2020-04-03 11:20] LABS: BASO % 1 % (0-3); EOS # 0.1 x10^3/uL (0.0-0.7); EOS % 2 % (0-3); HEMATOCRIT 33.9 % (36.0-47.0); HEMOGLOBIN 11.2 g/dL (12.0-15.5); LYMPH # 1.7 x10^3/uL (1.0-4.8); LYMPH % 43 % (24-48); MEAN CORPUSCULAR HEMOGLOBIN 30 pg (25-35); MEAN CORPUSCULAR HGB CONC 33 g/dL (31-37); MEAN CORPUSCULAR VOLUME 92 fL (79-100); MONO # 0.5 x10^3/uL (0.0-1.1); MONO % 14 % (0-9); NEUT # 1.6 x10^3/uL (1.8-7.7); NEUT % 41 % (31-73); PLATELET COUNT 162 x10^3/uL (140-400); RED BLOOD COUNT 3.67 x10^6/uL (3.50-5.40); RED CELL DISTRIBUTION WIDTH 16.2 % (11.5-14.5)
--- NOTE | 2020-04-03 11:29 | PDOC ---
PROGRESS NOTES Date of Service: DATE: 04/03/20 TIME: 11:29 Chief Complaint Chief Complaint DICTATED and SIGNED BY: IVETT ALLEN MD DATE: 04/01/202012 VTE Prophylaxis Ordered VTE Prophylaxis Devices: No VTE Pharmacological Prophylaxi: Yes Assessment/Plan Assessment/Plan Impression: 1. Acute witnessed generalized seizure, likely sec to alcohol withdrawal 2. No acute intracranial abnormality is identified. by ct head 3. hx severe alcohol abuse 4. LACTIC ACIDOSIS SEC # 1 plan admit CVC BED SEIZURE PRECAUTIONS NEUROLOGY CONSULT DVT PROPHYLAXIS [facility] PROTOCOL EMPERIC IV ANTIBIOTICS MRI HEAD PENDING D/W RN Justifications for Admission Justifications for Admission Other Justification History of Present Illness History of Present Illness Identification/Chief Complaint Chief Complaint seen in er with possible seizure 34-year-old female with PMH high cholesterol, alcohol abuse who presents with a chief complaint of seizure-like activity. 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 she was unresponsive and had upper extremity tonic-clonic movements.//became somewhat agitated in route and they did administer 10 mg total of intramuscular Versed. patient has not gone on any fire runs today. Past Medical History Past Medical History Past Medical History Past Medical History Past Medical History: Anxiety, Depression, Other Additional Past Medical Histor: fatty liver,ETOH ABUSE/WITHDRAWAL Past Surgical History: Tonsillectomy Smoking Status: Current Every Day Smoker Alcohol Use: Heavy Drug Use: None fhx copd Cardiovascular: No pertinent hx Pulmonary: No pertinent hx GI: No pertinent hx Heme/Onc: No pertinent hx Hepatobiliary: No pertinent hx Psych: Anxiety, Addictions, Depression Rheumatologic: No pertinent hx Infectious disease: No pertinent hx Renal/: No pertinent hx Endocrine: No pertinent hx Past Surgical History Past Surgical History: Tonsillectomy Family History Family History: Depression, High Cholestrol, Hypertension Social History Smoke: No ALCOHOL: heavy Drugs: None Current Problem List Problem List Problems Medical Problems: (1) Alcohol withdrawal seizure Status: Acute Vitals Vitals Vital Signs Date Time Temp Pulse Resp B/P (MAP) Pulse Ox O2 Delivery O2 Flow Rate FiO2 04/03/20 08:00 Room Air 04/03/20 07:00 98.0 101 16 131/89 (103) 97 98.0 Physical Exam General: Alert, Oriented X3, Cooperative, No acute distress Abdomen: Normal bowel sounds, Soft Extremities: No cyanosis Assessment and Plan Assessmemt and Plan Problems Medical Problems: (1) Alcohol withdrawal seizure Status: Acute (2) Lactic acidemia Status: Acute Comment Review of Relevant I have reviewed the following items nichelle (where applicable) has been applied. Labs Laboratory Tests Test 04/01/20 19:15 04/01/20 19:25 04/01/20 19:35 04/02/20 05:45 White Blood Count 6.0 x10^3/uL (4.0-11.0) Red Blood Count 3.75 x10^6/uL (3.50-5.40) Hemoglobin 11.5 g/dL (12.0-15.5) Hematocrit 34.5 % (36.0-47.0) Mean Corpuscular Volume 92 fL (79-100) Mean Corpuscular Hemoglobin 31 pg (25-35) Mean Corpuscular Hemoglobin Concent 33 g/dL (31-37) Red Cell Distribution Width 16.4 % (11.5-14.5) Platelet Count 195 x10^3/uL (140-400) Neutrophils (%) (Auto) 45 % (31-73) Lymphocytes (%) (Auto) 40 % (24-48) Monocytes (%) (Auto) 12 % (0-9) Eosinophils (%) (Auto) 2 % (0-3) Basophils (%) (Auto) 1 % (0-3) Neutrophils # (Auto) 2.7 x10^3/uL (1.8-7.7) Lymphocytes # (Auto) 2.4 x10^3/uL (1.0-4.8) Monocytes # (Auto) 0.7 x10^3/uL (0.0-1.1) Eosinophils # (Auto) 0.1 x10^3/uL (0.0-0.7) Basophils # (Auto) 0.1 x10^3/uL (0.0-0.2) Prothrombin Time 11.9 SEC (11.7-14.0) Prothromb Time International Ratio 0.9 (0.8-1.1) Sodium Level 137 mmol/L (136-145) 133 mmol/L (136-145) Potassium Level 4.4 mmol/L (3.5-5.1) 3.9 mmol/L (3.5-5.1) Chloride Level 102 mmol/L (98-107) 103 mmol/L (98-107) Carbon Dioxide Level 21 mmol/L (21-32) 20 mmol/L (21-32) Anion Gap 14 (6-14) 10 (6-14) Blood Urea Nitrogen 17 mg/dL (7-20) 13 mg/dL (7-20) Creatinine 1.2 mg/dL (0.6-1.0) 0.8 mg/dL (0.6-1.0) Estimated GFR (Cockcroft-Gault) 51.4 82.1 BUN/Creatinine Ratio 14 (6-20) Glucose Level 140 mg/dL (70-99) 86 mg/dL (70-99) Lactic Acid Level 7.7 mmol/L (0.4-2.0) Calcium Level 8.9 mg/dL (8.5-10.1) 8.0 mg/dL (8.5-10.1) Phosphorus Level 3.3 mg/dL (2.6-4.7) Magnesium Level 2.3 mg/dL (1.8-2.4) Total Bilirubin 0.1 mg/dL (0.2-1.0) Aspartate Amino Transf (AST/SGOT) 28 U/L (15-37) Alanine Aminotransferase (ALT/SGPT) 23 U/L (14-59) Alkaline Phosphatase 66 U/L (46-116) Creatine Kinase 108 U/L (26-192) Total Protein 7.7 g/dL (6.4-8.2) Albumin 4.0 g/dL (3.4-5.0) Albumin/Globulin Ratio 1.1 (1.0-1.7) Lipase 66 U/L (73-393) Ethyl Alcohol Level < 10 mg/dL (0-10) Urine Opiates Screen Neg (NEG) Urine Methadone Screen Neg (NEG) Urine Barbiturates Neg (NEG) Urine Phencyclidine Screen Neg (NEG) Urine Amphetamine/Methamphetamine Neg (NEG) Urine Benzodiazepines Screen Pos (NEG) Urine Cocaine Screen Neg (NEG) Urine Cannabinoids Screen Neg (NEG) Urine Ethyl Alcohol Neg (NEG) Bedside Urine HCG, Qualitative Hcg negative (Negative) Test 04/02/20 10:45 White Blood Count 5.1 x10^3/uL (4.0-11.0) Red Blood Count 3.86 x10^6/uL (3.50-5.40) Hemoglobin 11.8 g/dL (12.0-15.5) Hematocrit 35.1 % (36.0-47.0) Mean Corpuscular Volume 91 fL (79-100) Mean Corpuscular Hemoglobin 31 pg (25-35) Mean Corpuscular Hemoglobin Concent 34 g/dL (31-37) Red Cell Distribution Width 16.4 % (11.5-14.5) Platelet Count 179 x10^3/uL (140-400) Neutrophils (%) (Auto) 55 % (31-73) Lymphocytes (%) (Auto) 31 % (24-48) Monocytes (%) (Auto) 13 % (0-9) Eosinophils (%) (Auto) 1 % (0-3) Basophils (%) (Auto) 1 % (0-3) Neutrophils # (Auto) 2.8 x10^3/uL (1.8-7.7) Lymphocytes # (Auto) 1.5 x10^3/uL (1.0-4.8) Monocytes # (Auto) 0.7 x10^3/uL (0.0-1.1) Eosinophils # (Auto) 0.1 x10^3/uL (0.0-0.7) Basophils # (Auto) 0.0 x10^3/uL (0.0-0.2) Lactic Acid Level 1.5 mmol/L (0.4-2.0) Medications Current Medications Propofol (Diprivan) 200 mg 1X ONCE IV ; Start 04/01/20 at 19:15; Stop 04/01/20 at 19:19; Status DC Phenobarbital (Luminal) 65 mg Q8HRS IVP ; Start 04/01/20 at 20:00; Stop 04/01/20 at 19:19; Status DC Ringer's Solution 1,000 ml @ 1,000 mls/hr 1X ONCE IV Last administered on 04/01/20at 19:32; Start 04/01/20 at 19:30; Stop 04/01/20 at 20:29; Status DC Phenobarbital (Luminal) 65 mg 1X ONCE IM Last administered on 04/01/20at 20:12; Start 04/01/20 at 19:30; Stop 04/01/20 at 19:42; Status DC Ondansetron HCl (Zofran) 4 mg 1X ONCE IVP Last administered on 04/01/20at 20:44; Start 04/01/20 at 20:30; Stop 04/01/20 at 20:47; Status DC Acetaminophen (Tylenol) 1,000 mg 1X ONCE PO Last administered on 04/01/20at 20:44; Start 04/01/20 at 20:30; Stop 04/01/20 at 20:47; Status DC Ondansetron HCl (Zofran) 4 mg PRN Q8HRS PRN IV NAUSEA/VOMITING 1ST CHOICE; Start 04/01/20 at 21:00; Stop 04/02/20 at 20:59; Status DC Lorazepam (Ativan Inj) 1 mg PRN Q2HRS PRN IVP ANXIETY / AGITATION Last admini stered on 04/01/20at 23:35; Start 04/01/20 at 21:00 Propranolol HCl (Inderal) 10 mg PRN Q12HR PRN PO SEE COMMENTS Last administered on 04/02/20at 10:06; Start 04/01/20 at 21:15 Metoclopramide HCl (Reglan Vial) 10 mg 1X ONCE IVP Last administered on 0at 23:35; Start 04/01/20 at 23:30; Stop 04/01/20 at 23:31; Status DC Diphenhydramine HCl (Benadryl) 50 mg 1X ONCE IVP Last administered on 04/01/20at 23:35; Start 04/01/20 at 23:30; Stop 04/01/20 at 23:31; Status DC Multivitamins 10 ml/Thiamine HCl 100 mg/Folic Acid 1 mg/Sodium Chloride 1,011.2 ml @ 100 mls/ hr DAILY IV Last administered on 04/03/20at 08:36; Start 04/02/20 at 11:30; Stop 04/06/20 at 19:07 Thiamine HCl 100 mg/Dextrose 51 ml @ 100 mls/hr DAILY IV ; Start 04/07/20 at 09:00; Stop 04/11/20 at 09:31 Lorazepam (Ativan) 4 mg PRN Q1HR PRN PO For CIWA 8-14; Start 04/02/20 at 10:30 Lorazepam (Ativan) 8 mg PRN Q1HR PRN PO For CIWA 15 or greater; Start 04/02/20 at 10:30 Lorazepam (Ativan Inj) 4 mg PRN Q1HR PRN IV For CIWA 15 or greater; Start 04/02 at 10:30 Haloperidol Lactate (Haldol Inj) 5 mg PRN Q4HRS PRN IVP Hallucinatns,Confusn,Delirium; Start 04/02/20 at 10:30 Diphenhydramine HCl (Benadryl) 25 mg PRN Q15MIN PRN IVP EPS symptoms 2'Haldol admin; Start 04/02/20 at 10:30 Clonidine HCl (Catapres) 0.1 mg PRN Q1HR PRN PO SBP > 180 or DBP > 100, MRX3; Start 04/02/20 at 10:30 Lorazepam (Ativan Inj) 2 mg PRN Q15MIN PRN IV SEE COMMENTS; Start 04/02/20 at 10:30; Stop 04/02/20 at 10:33; Status DC Lorazepam (Ativan Inj) 4 mg PRN Q15MIN PRN IV SEE COMMENTS; Start 04/02/20 at 10:30; Stop 04/02/20 at 10:33; Status DC Acetaminophen (Tylenol) 1,000 mg PRN Q6HRS PRN PO PAIN Last administered on 04/03/20at 07:57; Start 04/02/20 at 10:30 Ceftriaxone Sodium (Rocephin) 1 gm Q24H IVP Last administered on 04/02/20at 20:20; Start 04/02/20 at 20:00 Doxepin HCl (SINequan) 10 mg QHS PO Last administered on 04/02/20at 21:39; Start 04/02/20 at 21:00 Trazodone HCl (Desyrel) 100 mg QHS PO Last administered on 04/02/20at 21:38; Start 04/02/20 at 21:00 Active Scripts Active Reported Doxepin Hcl 50 Mg Capsule 1 Cap PO QHS Propranolol Hcl 10 Mg Tablet 1 Tab PO PRN TID PRN Trazodone Hcl 50 Mg Tablet 1 Tab PO PRN QHS PRN Sertraline Hcl 100 Mg Tablet 1 Tab PO DAILY Alprazolam 0.5 Mg Tablet 1 Tab PO PRN QHS PRN Vitals/I & O Vital Sign - Last 24 Hours 04/02/20 04/02/20 04/02/20 04/02/20 15:00 19:49 20:20 23:38 Temp 98.0 98.3 97.8 98.0 98.3 97.8 Pulse 80 90 89 Resp 18 16 16 B/P (MAP) 132/86 (101) 133/79 (97) 132/84 (100) Pulse Ox 96 95 96 O2 Delivery Room Air Room Air Room Air 04/03/20 04/03/20 04/03/20 03:52 07:00 08:00 Temp 98.0 98.0 98.0 98.0 Pulse 90 101 Resp 16 16 B/P (MAP) 120/78 (92) 131/89 (103) Pulse Ox 96 97 O2 Delivery Room Air Room Air Room Air Intake and Output 04/02/20 04/02/20 04/03/20 15:00 23:00 07:00 Intake Total 240 ml 1991 ml Balance 240 ml 1991 ml Justicifation of Admission Dx: Justifications for Admission: Justification of Admission Dx: Yes JOSELYN DIAL MD Apr 03, 2020 11:29
[2020-04-03 11:40] LABS: ALBUMIN/GLOBULIN RATIO 0.8 (1.0-1.7); CALCIUM 8.1 mg/dL (8.5-10.1); CREATININE 0.9 mg/dL (0.6-1.0); GFR 71.7; POTASSIUM 3.8 mmol/L (3.5-5.1); TOTAL BILIRUBIN 0.2 mg/dL (0.2-1.0); TOTAL PROTEIN 6.6 g/dL (6.4-8.2)
[2020-04-03 15:00] VITALS: BP 125/89
[2020-04-03 19:58] VITALS: BP 143/92
[2020-04-03] MEDS: CEFDINIR 300 MG CAPSULE PO SCH (20:44)
[2020-04-03] MEDS: LACTOBACILLUS RHAMNOSUS GG 1 CAPSULE. PO SCH (20:44)
[2020-04-03] MEDS: traZODone 100 MG TABLET. PO SCH (20:44)
--- NOTE | 2020-04-03 20:46 | PDOC ---
PROGRESS NOTES Assessment Problems Medical Problems: (1) Alcohol withdrawal seizure Status: Acute (2) Lactic acidemia Status: Acute 1. Generalized tonic-clonic seizure, first-time. She has had no further seizure. CT scan of the head and cervical spine were negative. Although MRI brain was ordered for today it did not happen. 2. She has had history of depression and been on several different medicine trials. At the present time she would prefer to stay off antidepressants. 3. Insomnia for which she has used doxepin and trazodone. I did resume these medications last night which she found quite helpful. 4. She is complaining of left-sided neck pain. She did not have this prior to the seizure event. Plan 1. She will hopefully have an MRI of the brain with and without contrast on Saturday. We will make sure there is not an abnormality that would be contributing to this seizure. We discussed that she should not drive for 6 months until spell free. I would anticipate dismissal on Saturday if all is negative. 2. I would like to initiate Flexeril 10 mg at night for the neck pain. I do not 1 over sedate so I will stop the doxepin 10 mg. We will continue with trazodone 50 mg at night for sleep. I will arrange for a heating pad. 3. If she is feeling more depressed I advised her to contact her primary care physician. We discussed that there are techniques to reduce depression such as exercise, regulating sleep patterns and eating a healthy diet. She can also work with a counselor. Subjective My neck is really sore. My whole body is a little sore after the seizure. I do not think I want to restart any of the antidepressants. I had a puff of cigarette before I became dizzy. Do think the cigarette provoked the seizure? Objective Vital Signs Date Time Temp Pulse Resp B/P (MAP) Pulse Ox O2 Delivery O2 Flow Rate FiO2 04/03/20 19:58 97.7 94 16 143/92 (109) 97 Room Air 97.7 Intake and Output 04/03/20 07:00 Intake Total 2232 ml Balance 2232 ml Intake Oral 1220 ml IV Total 1012 ml # Voids 2 PHYSICAL EXAM She was alert, awake and cooperative. Speech was fluent and clear. She had a good fund of recent and remote knowledge. Attention and concentration was intact. The eyes were conjugate and face symmetric. Palpation of the neck revealed some tightness on the left side. Movements were symmetric and well coordinated. Review of Relevant I have reviewed the following items nichelle (where applicable) has been applied. Labs Laboratory Tests Test 04/02/20 05:45 04/02/20 10:45 04/03/20 10:30 Sodium Level 133 mmol/L (136-145) 140 mmol/L (136-145) Potassium Level 3.9 mmol/L (3.5-5.1) 3.8 mmol/L (3.5-5.1) Chloride Level 103 mmol/L (98-107) 106 mmol/L (98-107) Carbon Dioxide Level 20 mmol/L (21-32) 25 mmol/L (21-32) Anion Gap 10 (6-14) 9 (6-14) Blood Urea Nitrogen 13 mg/dL (7-20) 7 mg/dL (7-20) Creatinine 0.8 mg/dL (0.6-1.0) 0.9 mg/dL (0.6-1.0) Estimated GFR (Cockcroft-Gault) 82.1 71.7 Glucose Level 86 mg/dL (70-99) 107 mg/dL (70-99) Calcium Level 8.0 mg/dL (8.5-10.1) 8.1 mg/dL (8.5-10.1) White Blood Count 5.1 x10^3/uL (4.0-11.0) 4.0 x10^3/uL (4.0-11.0) Red Blood Count 3.86 x10^6/uL (3.50-5.40) 3.67 x10^6/uL (3.50-5.40) Hemoglobin 11.8 g/dL (12.0-15.5) 11.2 g/dL (12.0-15.5) Hematocrit 35.1 % (36.0-47.0) 33.9 % (36.0-47.0) Mean Corpuscular Volume 91 fL (79-100) 92 fL (79-100) Mean Corpuscular Hemoglobin 31 pg (25-35) 30 pg (25-35) Mean Corpuscular Hemoglobin Concent 34 g/dL (31-37) 33 g/dL (31-37) Red Cell Distribution Width 16.4 % (11.5-14.5) 16.2 % (11.5-14.5) Platelet Count 179 x10^3/uL (140-400) 162 x10^3/uL (140-400) Neutrophils (%) (Auto) 55 % (31-73) 41 % (31-73) Lymphocytes (%) (Auto) 31 % (24-48) 43 % (24-48) Monocytes (%) (Auto) 13 % (0-9) 14 % (0-9) Eosinophils (%) (Auto) 1 % (0-3) 2 % (0-3) Basophils (%) (Auto) 1 % (0-3) 1 % (0-3) Neutrophils # (Auto) 2.8 x10^3/uL (1.8-7.7) 1.6 x10^3/uL (1.8-7.7) Lymphocytes # (Auto) 1.5 x10^3/uL (1.0-4.8) 1.7 x10^3/uL (1.0-4.8) Monocytes # (Auto) 0.7 x10^3/uL (0.0-1.1) 0.5 x10^3/uL (0.0-1.1) Eosinophils # (Auto) 0.1 x10^3/uL (0.0-0.7) 0.1 x10^3/uL (0.0-0.7) Basophils # (Auto) 0.0 x10^3/uL (0.0-0.2) 0.0 x10^3/uL (0.0-0.2) Lactic Acid Level 1.5 mmol/L (0.4-2.0) BUN/Creatinine Ratio 8 (6-20) Total Bilirubin 0.2 mg/dL (0.2-1.0) Aspartate Amino Transf (AST/SGOT) 18 U/L (15-37) Alanine Aminotransferase (ALT/SGPT) 17 U/L (14-59) Alkaline Phosphatase 45 U/L (46-116) Total Protein 6.6 g/dL (6.4-8.2) Albumin 3.0 g/dL (3.4-5.0) Albumin/Globulin Ratio 0.8 (1.0-1.7) Laboratory Tests Test 04/03/20 10:30 White Blood Count 4.0 x10^3/uL (4.0-11.0) Red Blood Count 3.67 x10^6/uL (3.50-5.40) Hemoglobin 11.2 g/dL (12.0-15.5) Hematocrit 33.9 % (36.0-47.0) Mean Corpuscular Volume 92 fL (79-100) Mean Corpuscular Hemoglobin 30 pg (25-35) Mean Corpuscular Hemoglobin Concent 33 g/dL (31-37) Red Cell Distribution Width 16.2 % (11.5-14.5) Platelet Count 162 x10^3/uL (140-400) Neutrophils (%) (Auto) 41 % (31-73) Lymphocytes (%) (Auto) 43 % (24-48) Monocytes (%) (Auto) 14 % (0-9) Eosinophils (%) (Auto) 2 % (0-3) Basophils (%) (Auto) 1 % (0-3) Neutrophils # (Auto) 1.6 x10^3/uL (1.8-7.7) Lymphocytes # (Auto) 1.7 x10^3/uL (1.0-4.8) Monocytes # (Auto) 0.5 x10^3/uL (0.0-1.1) Eosinophils # (Auto) 0.1 x10^3/uL (0.0-0.7) Basophils # (Auto) 0.0 x10^3/uL (0.0-0.2) Sodium Level 140 mmol/L (136-145) Potassium Level 3.8 mmol/L (3.5-5.1) Chloride Level 106 mmol/L (98-107) Carbon Dioxide Level 25 mmol/L (21-32) Anion Gap 9 (6-14) Blood Urea Nitrogen 7 mg/dL (7-20) Creatinine 0.9 mg/dL (0.6-1.0) Estimated GFR (Cockcroft-Gault) 71.7 BUN/Creatinine Ratio 8 (6-20) Glucose Level 107 mg/dL (70-99) Calcium Level 8.1 mg/dL (8.5-10.1) Total Bilirubin 0.2 mg/dL (0.2-1.0) Aspartate Amino Transf (AST/SGOT) 18 U/L (15-37) Alanine Aminotransferase (ALT/SGPT) 17 U/L (14-59) Alkaline Phosphatase 45 U/L (46-116) Total Protein 6.6 g/dL (6.4-8.2) Albumin 3.0 g/dL (3.4-5.0) Albumin/Globulin Ratio 0.8 (1.0-1.7) Medications Current Medications Propofol (Diprivan) 200 mg 1X ONCE IV ; Start 04/01/20 at 19:15; Stop 04/01/20 at 19:19; Status DC Phenobarbital (Luminal) 65 mg Q8HRS IVP ; Start 04/01/20 at 20:00; Stop 04/01/20 at 19:19; Status DC Ringer's Solution 1,000 ml @ 1,000 mls/hr 1X ONCE IV Last administered on 04/01/20at 19:32; Start 04/01/20 at 19:30; Stop 04/01/20 at 20:29; Status DC Phenobarbital (Luminal) 65 mg 1X ONCE IM Last administered on 04/01/20at 20:12; Start 04/01/20 at 19:30; Stop 04/01/20 at 19:42; Status DC Ondansetron HCl (Zofran) 4 mg 1X ONCE IVP Last administered on 04/01/20at 20:44; Start 04/01/20 at 20:30; Stop 04/01/20 at 20:47; Status DC Acetaminophen (Tylenol) 1,000 mg 1X ONCE PO Last administered on 04/01/20at 20:44; Start 04/01/20 at 20:30; Stop 04/01/20 at 20:47; Status DC Ondansetron HCl (Zofran) 4 mg PRN Q8HRS PRN IV NAUSEA/VOMITING 1ST CHOICE; Start 04/01/20 at 21:00; Stop 04/02/20 at 20:59; Status DC Lorazepam (Ativan Inj) 1 mg PRN Q2HRS PRN IVP ANXIETY / AGITATION Last administered on 04/01/20at 23:35; Start 04/01/20 at 21:00 Propranolol HCl (Inderal) 10 mg PRN Q12HR PRN PO SEE COMMENTS Last administered on 04/02/20at 10:06; Start 04/01/20 at 21:15 Metoclopramide HCl (Reglan Vial) 10 mg 1X ONCE IVP Last administered on 04/01/20at 23:35; Start 04/01/20 at 23:30; Stop 04/01/20 at 23:31; Status DC Diphenhydramine HCl (Benadryl) 50 mg 1X ONCE IVP Last administered on 04/01/20 at 23:35; Start 04/01/20 at 23:30; Stop 04/01/20 at 23:31; Status DC Multivitamins 10 ml/Thiamine HCl 100 mg/Folic Acid 1 mg/Sodium Chloride 1,011.2 ml @ 100 mls/ hr DAILY IV Last administered on 04/03/20at 08:36; Start 04/02/20 at 11:30; Stop 04/06/20 at 19:07 Thiamine HCl 100 mg/Dextrose 51 ml @ 100 mls/hr DAILY IV ; Start 04/07/20 at 09:00; Stop 04/11/20 at 09:31 Lorazepam (Ativan) 4 mg PRN Q1HR PRN PO For CIWA 8-14; Start 04/02/20 at 10:30 Lorazepam (Ativan) 8 mg PRN Q1HR PRN PO For CIWA 15 or greater; Start 04/02/20 at 10:30 Lorazepam (Ativan Inj) 4 mg PRN Q1HR PRN IV For CIWA 15 or greater; Start 04/02/20 at 10:30 Haloperidol Lactate (Haldol Inj) 5 mg PRN Q4HRS PRN IVP Hallucinatns,Confusn,Delirium; Start 04/02/20 at 10:30 Diphenhydramine HCl (Benadryl) 25 mg PRN Q15MIN PRN IVP EPS symptoms 2'Haldol admin; Start 04/02/20 at 10:30 Clonidine HCl (Catapres) 0.1 mg PRN Q1HR PRN PO SBP > 180 or DBP > 100, MRX3; Start 04/02/20 at 10:30 Lorazepam (Ativan Inj) 2 mg PRN Q15MIN PRN IV SEE COMMENTS; Start 04/02/20 at 10:30; Stop 04/02/20 at 10:33; Status DC Lorazepam (Ativan Inj) 4 mg PRN Q15MIN PRN IV SEE COMMENTS; Start 04/02/20 at 10:30; Stop 04/02/20 at 10:33; Status DC Acetaminophen (Tylenol) 1,000 mg PRN Q6HRS PRN PO PAIN Last administered on 04/03/20at 07:57; Start 04/02/20 at 10:30 Ceftriaxone Sodium (Rocephin) 1 gm Q24H IVP Last administered on 04/02/20at 20:20; Start 04/02/20 at 20:00; Stop 04/03/20 at 17:00; Status DC Doxepin HCl (SINequan) 10 mg QHS PO Last administered on 04/02/20at 21:39; S tart 04/02/20 at 21:00; Stop 04/03/20 at 20:40; Status DC Trazodone HCl (Desyrel) 100 mg QHS PO Last administered on 04/02/20at 21:38; Start 04/02/20 at 21:00 Cefdinir (Omnicef) 300 mg BID PO ; Start 04/03/20 at 21:00 Lactobacillus Rhamnosus (Culturelle) 1 cap BID PO ; Start 04/03/20 at 21:00 Cyclobenzaprine HCl (Flexeril) 10 mg HS PO ; Start 04/03/20 at 21:00; Status UNV Active Scripts Active Reported Doxepin Hcl 50 Mg Capsule 1 Cap PO QHS Propranolol Hcl 10 Mg Tablet 1 Tab PO PRN TID PRN Trazodone Hcl 50 Mg Tablet 1 Tab PO PRN QHS PRN Sertraline Hcl 100 Mg Tablet 1 Tab PO DAILY Alprazolam 0.5 Mg Tablet 1 Tab PO PRN QHS PRN Vitals/I & O Vital Sign - Last 24 Hours 04/02/20 04/03/20 04/03/20 04/03/20 23:38 03:52 07:00 08:00 Temp 97.8 98.0 98.0 97.8 98.0 98.0 Pulse 89 90 101 Resp 16 16 16 B/P (MAP) 132/84 (100) 120/78 (92) 131/89 (103) Pulse Ox 96 96 97 O2 Delivery Room Air Room Air Room Air Room Air 04/03/20 04/03/20 04/03/20 11:00 15:00 19:58 Temp 98.0 98.0 97.7 98.0 98.0 97.7 Pulse 95 86 94 Resp 16 16 16 B/P (MAP) 130/87 (101) 125/89 (101) 143/92 (109) Pulse Ox 97 95 97 O2 Delivery Room Air Room Air Room Air Intake and Output 04/02/20 04/02/20 04/03/20 15:00 23:00 07:00 Intake Total 240 ml 1991 ml Balance 240 ml 1991 ml Justicifation of Admission Dx: Justifications for Admission: Justification of Admission Dx: Yes CELESTE LAND MD Apr 03, 2020 20:46
[2020-04-03] MEDS ORDERED: CYCLOBENZAPRINE 10 MG TABLET. PO SCH (21:00)
[2020-04-03 23:57] VITALS: BP 128/91
[2020-04-04 03:53] VITALS: BP 134/89
[2020-04-04] MEDS: ACETAMINOPHEN 500 MG TABLET PO PRN (05:30)
[2020-04-04 07:04] LABS: CREATININE ISTAT 0.9 mg/dL (0.5-1.4); HEMOGLOBIN ISTAT 12.9 g/dL (12-15); ION CA ISTAT 1.13 mmol/L (1.13-1.32)
[2020-04-04 07:55] VITALS: BP 144/97
--- NOTE | 2020-04-04 08:25 | PDOC ---
Provider Note Date of Service: DATE: 04/04/20 TIME: 08:24 Provider Note Work Excuse The patient was hospitalized at [facility] for first-time seizure. No driving, operating heavy machinery, or working at heights until 6 months without a seizure. Otherwise, okay to return to work. Justifications for Admission Other Justification SONIA STARR MD Apr 04, 2020 08:25
[2020-04-04] MEDS: CEFDINIR 300 MG CAPSULE PO SCH (08:44)
[2020-04-04] MEDS: LACTOBACILLUS RHAMNOSUS GG 1 CAPSULE. PO SCH (08:45)
[2020-04-04] MEDS ORDERED: FOLIC ACID 1 MG TABLET. PO SCH (09:00)
[2020-04-04] MEDS ORDERED: MULTIVITAMIN with MINERAL TABLET. PO SCH (09:00)
[2020-04-04] MEDS ORDERED: THIAMINE 100 MG TABLET. PO SCH (09:00)
[2020-04-04] MEDS ORDERED: IBUPROFEN 200 MG TABLET. PO PRN (09:30)
[2020-04-04] MEDS ORDERED: CYCLOBENZAPRINE 10 MG TABLET. PO ONE (09:30)
--- NOTE | 2020-04-04 09:37 | EEG ---
DATE OF SERVICE: 04/04/2020 EEG NUMBER: [id number]. OBJECTIVE: The patient is a 34-year-old female with new seizure. DESCRIPTION: This is a digital study. Electrodes are placed according to the international 10-20 system. Bipolar and referential montages are available. INTERPRETATION: The waking background consists of 9-10 Hz, 50-100 microvolt activity, symmetrically distributed over parieto-occipital regions and reactive to eye opening. Hyperventilation and intermittent photic stimulation are noncontributory. Stage 1 sleep is achieved with normal electroencephalogram patterns. IMPRESSION: This electroencephalogram with the patient awake and asleep is within normal limits. There is no focal, paroxysmal, or epileptiform activity. Thank you for letting us help with the patient's care. SONIA STARR MD DR: YAJAIRA/maxine JOB#: [id number] / [id number]
[2020-04-04 10:29] VITALS: BP 135/83
--- NOTE | 2020-04-04 10:51 | PDOC ---
PROGRESS NOTES Date of Service DATE: 04/04/20 TIME: 10:47 Assessment Problems Medical Problems: (1) Alcohol withdrawal seizure Status: Acute (2) Lactic acidemia Status: Acute Generalized tonic-clonic seizure, first-time. She has had no further seizures. History of depression and been on several different medicine trials. At the present time she would prefer to stay off antidepressants. Insomnia for which she has used doxepin and trazodone. Left-sided neck pain, better, musculoskeletal from seizure Plan Await MRI of the brain EEG, done, negative Flexeril PRN, holding doxepin 10 mg while on it. We discussed risk, benefits, alternatives, side effects, and the patient would like to hold off on starting anticonvulsants. I informed her no driving for 6 months, no other similar hazardous activities such as working with heavy machinery or climbing ladders. I wrote out a work excuse Okay to discharge later today after MRI done. Follow-up with me in 2 months. Subjective Neck and body pain are better Objective Vital Signs Date Time Temp Pulse Resp B/P (MAP) Pulse Ox O2 Delivery O2 Flow Rate FiO2 04/04/20 10:29 98.1 88 16 135/83 (100) 98 Room Air 98.1 Intake and Output 04/04/20 07:00 Intake Total 960 ml Balance 960 ml Intake Oral 960 ml # Voids 5 PHYSICAL EXAM Alert. Oriented to time, place and person. PERRL. EOMI. CN: no focal findings. Muscle tone: normal. Muscle strength: 5/5 DTR: 2+ Plantar reflex: flexor Gait: not examined in bed. Sensory exam: no abnormal findings. No cerebellar signs elicited. Review of Relevant I have reviewed the following items nichelle (where applicable) has been applied. Labs Laboratory Tests Test 04/03/20 10:30 White Blood Count 4.0 x10^3/uL (4.0-11.0) Red Blood Count 3.67 x10^6/uL (3.50-5.40) Hemoglobin 11.2 g/dL (12.0-15.5) Hematocrit 33.9 % (36.0-47.0) Mean Corpuscular Volume 92 fL (79-100) Mean Corpuscular Hemoglobin 30 pg (25-35) Mean Corpuscular Hemoglobin Concent 33 g/dL (31-37) Red Cell Distribution Width 16.2 % (11.5-14.5) Platelet Count 162 x10^3/uL (140-400) Neutrophils (%) (Auto) 41 % (31-73) Lymphocytes (%) (Auto) 43 % (24-48) Monocytes (%) (Auto) 14 % (0-9) Eosinophils (%) (Auto) 2 % (0-3) Basophils (%) (Auto) 1 % (0-3) Neutrophils # (Auto) 1.6 x10^3/uL (1.8-7.7) Lymphocytes # (Auto) 1.7 x10^3/uL (1.0-4.8) Monocytes # (Auto) 0.5 x10^3/uL (0.0-1.1) Eosinophils # (Auto) 0.1 x10^3/uL (0.0-0.7) Basophils # (Auto) 0.0 x10^3/uL (0.0-0.2) Sodium Level 140 mmol/L (136-145) Potassium Level 3.8 mmol/L (3.5-5.1) Chloride Level 106 mmol/L (98-107) Carbon Dioxide Level 25 mmol/L (21-32) Anion Gap 9 (6-14) Blood Urea Nitrogen 7 mg/dL (7-20) Creatinine 0.9 mg/dL (0.6-1.0) Estimated GFR (Cockcroft-Gault) 71.7 BUN/Creatinine Ratio 8 (6-20) Glucose Level 107 mg/dL (70-99) Calcium Level 8.1 mg/dL (8.5-10.1) Total Bilirubin 0.2 mg/dL (0.2-1.0) Aspartate Amino Transf (AST/SGOT) 18 U/L (15-37) Alanine Aminotransferase (ALT/SGPT) 17 U/L (14-59) Alkaline Phosphatase 45 U/L (46-116) Total Protein 6.6 g/dL (6.4-8.2) Albumin 3.0 g/dL (3.4-5.0) Albumin/Globulin Ratio 0.8 (1.0-1.7) Medications Current Medications Propofol (Diprivan) 200 mg 1X ONCE IV ; Start 04/01/20 at 19:15; Stop 04/01/20 at 19:19; Status DC Phenobarbital (Luminal) 65 mg Q8HRS IVP ; Start 04/01/20 at 20:00; Stop 04/01/20 at 19:19; Status DC Ringer's Solution 1,000 ml @ 1,000 mls/hr 1X ONCE IV Last administered on 04/01/20at 19:32; Start 04/01/20 at 19:30; Stop 04/01/20 at 20:29; Status DC Phenobarbital (Luminal) 65 mg 1X ONCE IM Last administered on 04/01/20at 20:12; Start 04/01/20 at 19:30; Stop 04/01/20 at 19:42; Status DC Ondansetron HCl (Zofran) 4 mg 1X ONCE IVP Last administered on 04/01/20at 20:44; Start 04/01/20 at 20:30; Stop 04/01/20 at 20:47; Status DC Acetaminophen (Tylenol) 1,000 mg 1X ONCE PO Last administered on 04/01/20at 20:44; Start 04/01/20 at 20:30; Stop 04/01/20 at 20:47; Status DC Ondansetron HCl (Zofran) 4 mg PRN Q8HRS PRN IV NAUSEA/VOMITING 1ST CHOICE; Start 04/01/20 at 21:00; Stop 04/02/20 at 20:59; Status DC Lorazepam (Ativan Inj) 1 mg PRN Q2HRS PRN IVP ANXIETY / AGITATION Last administered on 04/01/20at 23:35; Start 04/01/20 at 21:00 Propranolol HCl (Inderal) 10 mg PRN Q12HR PRN PO SEE COMMENTS Last administered on 04/02/20at 10:06; Start 04/01/20 at 21:15 Metoclopramide HCl (Reglan Vial) 10 mg 1X ONCE IVP Last administered on 04/01/20at 23:35; Start 04/01/20 at 23:30; Stop 04/01/20 at 23:31; Status DC Diphenhydramine HCl (Benadryl) 50 mg 1X ONCE IVP Last administered on 04/01/20at 23:35; Start 04/01/20 at 23:30; Stop 04/01/20 at 23:31; Status DC Multivitamins 10 ml/Thiamine HCl 100 mg/Folic Acid 1 mg/Sodium Chloride 1,011.2 ml @ 100 mls/ hr DAILY IV Last administered on 04/03/20at 08:36; Start 04/02/20 at 11:30; Stop 04/04/20 at 03:46; Status DC Thiamine HCl 100 mg/Dextrose 51 ml @ 100 mls/hr DAILY IV ; Start 04/07/20 at 09:00; Stop 04/04/20 at 03:47; Status DC Lorazepam (Ativan) 4 mg PRN Q1HR PRN PO For CIWA 8-14; Start 04/02/20 at 10:30 Lorazepam (Ativan) 8 mg PRN Q1HR PRN PO For CIWA 15 or greater; Start 04/02/20 at 10:30 Lorazepam (Ativan Inj) 4 mg PRN Q1HR PRN IV For CIWA 15 or greater; Start 04/02/20 at 10:30 Haloperidol Lactate (Haldol Inj) 5 mg PRN Q4HRS PRN IVP Hallucinatns,Confusn,Delirium; Start 04/02/20 at 10:30 Diphenhydramine HCl (Benadryl) 25 mg PRN Q15MIN PRN IVP EPS symptoms 2'Haldol admin; Start 04/02/20 at 10:30 Clonidine HCl (Catapres) 0.1 mg PRN Q1HR PRN PO SBP > 180 or DBP > 100, MRX3; Start 04/02/20 at 10:30 Lorazepam (Ativan Inj) 2 mg PRN Q15MIN PRN IV SEE COMMENTS; Start 04/02/20 at 10:30; Stop 04/02/20 at 10:33; Status DC Lorazepam (Ativan Inj) 4 mg PRN Q15MIN PRN IV SEE COMMENTS; Start 04/02/20 at 10:30; Stop 04/02/20 at 10:33; Status DC Acetaminophen (Tylenol) 1,000 mg PRN Q6HRS PRN PO PAIN Last administered on 04/04/20at 05:30; Start 04/02/20 at 10:30 Ceftriaxone Sodium (Rocephin) 1 gm Q24H IVP Last administered on 04/02/20at 20:20; Start 04/02/20 at 20:00; Stop 04/03/20 at 17:00; Status DC Doxepin HCl (SINequan) 10 mg QHS PO Last administered on 04/02/20at 21:39; Start 04/02/20 at 21:00; Stop 04/03/20 at 20:40; Status DC Trazodone HCl (Desyrel) 100 mg QHS PO Last administered on 04/03/20at 20:44; Start 04/02/20 at 21:00 Cefdinir (Omnicef) 300 mg BID PO Last administered on 04/04/20 08:44; Start 04/03/20 at 21:00 Lactobacillus Rhamnosus (Culturelle) 1 cap BID PO Last administered on 04/04/20 08:45; Start 04/03/20 at 21:00 Cyclobenzaprine HCl (Flexeril) 10 mg HS PO Last administered on 04/03/20at 20:44; Start 04/03/20 at 21:00 Folic Acid (Folic Acid) 1 mg DAILY PO Last administered on 04/04/20at 08:44; Start 04/04/20 at 09:00 Multivitamins (Thera M Plus) 1 tab DAILY PO Last administered on 04/04/20 08:45; Start 04/04/20 at 09:00 Thiamine Mononitrate (Vitamin B-1) 100 mg DAILY PO Last administered on 04/04/20 08:44; Start 04/04/20 at 09:00 Ibuprofen (Motrin) 600 mg PRN Q8HRS PRN PO INFLAMMATION Last administered on 04/04/20 09:44; Start 04/04/20 at 09:30 Cyclobenzaprine HCl (Flexeril) 10 mg 1X ONCE PO Last administered on 04/04/20 09:43; Start 04/04/20 at 09:30; Stop 04/04/20 at 09:33; Status DC Active Scripts Active Reported Doxepin Hcl 50 Mg Capsule 1 Cap PO QHS Propranolol Hcl 10 Mg Tablet 1 Tab PO PRN TID PRN Trazodone Hcl 50 Mg Tablet 1 Tab PO PRN QHS PRN Sertraline Hcl 100 Mg Tablet 1 Tab PO DAILY Alprazolam 0.5 Mg Tablet 1 Tab PO PRN QHS PRN Vitals/I & O Vital Sign - Last 24 Hours 8/30/20 8/30/20 8/30/20 8/30/20 11:00 15:00 19:35 19:58 Temp 98.0 98.0 97.7 98.0 98.0 97.7 Pulse 95 86 94 Resp 16 16 16 B/P (MAP) 130/87 (101) 125/89 (101) 143/92 (109) Pulse Ox 97 95 97 O2 Delivery Room Air Room Air Room Air Room Air 04/03/20 04/04/20 04/04/20 04/04/20 23:57 03:53 07:55 08:05 Temp 97.8 97.8 97.8 97.8 97.8 97.8 Pulse 85 85 81 Resp 16 16 16 B/P (MAP) 128/91 (103) 134/89 (104) 144/97 (113) Pulse Ox 97 97 95 O2 Delivery Room Air Room Air Room Air Room Air 04/04/20 10:29 Temp 98.1 98.1 Pulse 88 Resp 16 B/P (MAP) 135/83 (100) Pulse Ox 98 O2 Delivery Room Air Intake and Output 04/03/20 04/03/20 04/04/20 15:00 23:00 07:00 Intake Total 240 ml 720 ml Balance 240 ml 720 ml Justicifation of Admission Dx: Justifications for Admission: Justification of Admission Dx: Yes SONIA STARR MD Apr 04, 2020 10:51
--- NOTE | 2020-04-04 11:24 | PDOC ---
PROGRESS NOTES Date of Service: DATE: 04/04/20 TIME: 11:22 Chief Complaint Chief Complaint DICTATED and SIGNED BY: IVETT ALLEN MD DATE: 04/01/202012 VTE Prophylaxis Ordered VTE Prophylaxis Devices: No VTE Pharmacological Prophylaxi: Yes DISCHARGE DX Assessment/Plan Impression: 1. Acute witnessed generalized seizure, likely sec to alcohol withdrawal 2. No acute intracranial abnormality is identified. by ct head 3. hx severe alcohol abuse 4. LACTIC ACIDOSIS SEC # 1 plan admit CVC BED SEIZURE PRECAUTIONS NEUROLOGY CONSULT DVT PROPHYLAXIS CIWA PROTOCOL EMPERIC IV ANTIBIOTICS MRI HEAD PENDING NO DRINKING No driving x 6 months D/C MRI unremarkable , EEG OK 04/04 d/c planning 27 min D/W RN Justifications for Admission Justifications for Admission Other Justification History of Present Illness History of Present Illness Identification/Chief Complaint Chief Complaint seen in er with possible seizure 34-year-old female with PMH high cholesterol, alcohol abuse who presents with a chief complaint of seizure-like activity. 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 she was unresponsive and had upper extremity tonic-clonic movements.//became somewhat agitated in route and they did administer 10 mg total of intramuscular Versed. patient has not gone on any fire runs today. Past Medical History Past Medical History Past Medical History Past Medical History Past Medical History: Anxiety, Depression, Other Additional Past Medical Histor: fatty liver,ETOH ABUSE/WITHDRAWAL Past Surgical History: Tonsillectomy Smoking Status: Current Every Day Smoker Alcohol Use: Heavy Drug Use: None fhx copd Cardiovascular: No pertinent hx Pulmonary: No pertinent hx GI: No pertinent hx Heme/Onc: No pertinent hx Hepatobiliary: No pertinent hx Psych: Anxiety, Addictions, Depression Rheumatologic: No pertinent hx Infectious disease: No pertinent hx Renal/: No pertinent hx Endocrine: No pertinent hx Past Surgical History Past Surgical History: Tonsillectomy Family History Family History: Depression, High Cholestrol, Hypertension Social History Smoke: No ALCOHOL: heavy Drugs: None Current Problem List Problem List Problems Medical Problems: (1) Alcohol withdrawal seizure Status: Acute Vitals Vitals Vital Signs Date Time Temp Pulse Resp B/P (MAP) Pulse Ox O2 Delivery O2 Flow Rate FiO2 04/04/20 10:29 98.1 88 16 135/83 (100) 98 Room Air 98.1 Physical Exam General: Alert, Oriented X3, Cooperative, No acute distress Heart: Regular rate, Normal S1, Normal S2 Lungs: Clear Abdomen: Normal bowel sounds, Soft, No tenderness Extremities: No clubbing, No cyanosis, No edema Skin: No significant lesion Labs LABS MRI Brain with and without contrast History:New onset seizure Technique: Multiplanar, multi sequential pre and postcontrast MR imaging was performed of the brain. Comparison: None other than head CT April 01, 2020 Findings: There is no evidence of recent infarct or cytotoxic edema. The ventricles, sulci, and cisterns are within normal limits in size and configuration. There is no significant midline shift, intraaxial mass effect, or focal abnormal extra-axial fluid collection. There is no significant signal abnormality of the brain parenchyma. Hippocampal formations are symmetric in size and signal characteristics. There is no nodular parenchymal or leptomeningeal enhancement. There is preservation of the major intracranial flow-voids at the skull base. The cerebellar tonsils are normal in location. There is no significant abnormality of the pituitary gland. There is polypoid mucosal thickening/mucous retention cysts of the left maxillary sinus, greatest dimension about 2.7 cm AP, adjacent mild mucosal thickening. There is a 0.4 cm likely cyst of the pineal gland. The mastoid air cells are aerated. There is preserved marrow signal of the clivus. Impression: 1. Other than small likely cyst of the pineal gland, there is no significant intracranial abnormality. 2. There is polypoid mucosal thickening/mucous retention cyst inferior left maxillary sinus. Electronically signed by: Ivett Aleln MD (04/04/2020 3:17 PM) [id number] DICTATED and SIGNED BY: IVETT ALLEN MD DATE: 04/04/20 1517 Assessment and Plan Assessmemt and Plan Problems Medical Problems: (1) Alcohol withdrawal seizure Status: Acute (2) Lactic acidemia Status: Acute Comment Review of Relevant I have reviewed the following items nichelle (where applicable) has been applied. Labs Laboratory Tests Test 04/03/20 10:30 White Blood Count 4.0 x10^3/uL (4.0-11.0) Red Blood Count 3.67 x10^6/uL (3.50-5.40) Hemoglobin 11.2 g/dL (12.0-15.5) Hematocrit 33.9 % (36.0-47.0) Mean Corpuscular Volume 92 fL (79-100) Mean Corpuscular Hemoglobin 30 pg (25-35) Mean Corpuscular Hemoglobin Concent 33 g/dL (31-37) Red Cell Distribution Width 16.2 % (11.5-14.5) Platelet Count 162 x10^3/uL (140-400) Neutrophils (%) (Auto) 41 % (31-73) Lymphocytes (%) (Auto) 43 % (24-48) Monocytes (%) (Auto) 14 % (0-9) Eosinophils (%) (Auto) 2 % (0-3) Basophils (%) (Auto) 1 % (0-3) Neutrophils # (Auto) 1.6 x10^3/uL (1.8-7.7) Lymphocytes # (Auto) 1.7 x10^3/uL (1.0-4.8) Monocytes # (Auto) 0.5 x10^3/uL (0.0-1.1) Eosinophils # (Auto) 0.1 x10^3/uL (0.0-0.7) Basophils # (Auto) 0.0 x10^3/uL (0.0-0.2) Sodium Level 140 mmol/L (136-145) Potassium Level 3.8 mmol/L (3.5-5.1) Chloride Level 106 mmol/L (98-107) Carbon Dioxide Level 25 mmol/L (21-32) Anion Gap 9 (6-14) Blood Urea Nitrogen 7 mg/dL (7-20) Creatinine 0.9 mg/dL (0.6-1.0) Estimated GFR (Cockcroft-Gault) 71.7 BUN/Creatinine Ratio 8 (6-20) Glucose Level 107 mg/dL (70-99) Calcium Level 8.1 mg/dL (8.5-10.1) Total Bilirubin 0.2 mg/dL (0.2-1.0) Aspartate Amino Transf (AST/SGOT) 18 U/L (15-37) Alanine Aminotransferase (ALT/SGPT) 17 U/L (14-59) Alkaline Phosphatase 45 U/L (46-116) Total Protein 6.6 g/dL (6.4-8.2) Albumin 3.0 g/dL (3.4-5.0) Albumin/Globulin Ratio 0.8 (1.0-1.7) Medications Current Medications Propofol (Diprivan) 200 mg 1X ONCE IV ; Start 04/01/20 at 19:15; Stop 04/01/20 at 19:19; Status DC Phenobarbital (Luminal) 65 mg Q8HRS IVP ; Start 04/01/20 at 20:00; Stop 04/01/20 at 19:19; Status DC Ringer's Solution 1,000 ml @ 1,000 mls/hr 1X ONCE IV Last administered on 04/01/20at 19:32; Start 04/01/20 at 19:30; Stop 04/01/20 at 20:29; Status DC Phenobarbital (Luminal) 65 mg 1X ONCE IM Last administered on 04/01/20at 20:12; Start 04/01/20 at 19:30; Stop 04/01/20 at 19:42; Status DC Ondansetron HCl (Zofran) 4 mg 1X ONCE IVP Last administered on 04/01/20at 20:44; Start 04/01/20 at 20:30; Stop 04/01/20 at 20:47; Status DC Acetaminophen (Tylenol) 1,000 mg 1X ONCE PO Last administered on 04/01/20at 20:44; Start 04/01/20 at 20:30; Stop 04/01/20 at 20:47; Status DC Ondansetron HCl (Zofran) 4 mg PRN Q8HRS PRN IV NAUSEA/VOMITING 1ST CHOICE; St art 04/01/20 at 21:00; Stop 04/02/20 at 20:59; Status DC Lorazepam (Ativan Inj) 1 mg PRN Q2HRS PRN IVP ANXIETY / AGITATION Last administered on 04/01/20at 23:35; Start 04/01/20 at 21:00 Propranolol HCl (Inderal) 10 mg PRN Q12HR PRN PO SEE COMMENTS Last administered on 04/02/20at 10:06; Start 04/01/20 at 21:15 Metoclopramide HCl (Reglan Vial) 10 mg 1X ONCE IVP Last administered on 04/01/20at 23:35; Start 04/01/20 at 23:30; Stop 04/01/20 at 23:31; Status DC Diphenhydramine HCl (Benadryl) 50 mg 1X ONCE IVP Last administered on 04/01/20at 23:35; Start 04/01/20 at 23:30; Stop 04/01/20 at 23:31; Status DC Multivitamins 10 ml/Thiamine HCl 100 mg/Folic Acid 1 mg/Sodium Chloride 1,011.2 ml @ 100 mls/ hr DAILY IV Last administered on 04/03/20at 08:36; Start 04/02/20 at 11:30; Stop 04/04/20 at 03:46; Status DC Thiamine HCl 100 mg/Dextrose 51 ml @ 100 mls/hr DAILY IV ; Start 04/07/20 at 09 :00; Stop 04/04/20 at 03:47; Status DC Lorazepam (Ativan) 4 mg PRN Q1HR PRN PO For CIWA 8-14; Start 04/02/20 at 10:30 Lorazepam (Ativan) 8 mg PRN Q1HR PRN PO For CIWA 15 or greater; Start 04/02/20 at 10:30 Lorazepam (Ativan Inj) 4 mg PRN Q1HR PRN IV For CIWA 15 or greater; Start 04/02/20 at 10:30 Haloperidol Lactate (Haldol Inj) 5 mg PRN Q4HRS PRN IVP Hallucinatns,Confusn,Delirium; Start 04/02/20 at 10:30 Diphenhydramine HCl (Benadryl) 25 mg PRN Q15MIN PRN IVP EPS symptoms 2'Haldol admin; Start 04/02/20 at 10:30 Clonidine HCl (Catapres) 0.1 mg PRN Q1HR PRN PO SBP > 180 or DBP > 100, MRX3; Start 04/02/20 at 10:30 Lorazepam (Ativan Inj) 2 mg PRN Q15MIN PRN IV SEE COMMENTS; Start 04/02/20 at 10:30; Stop 04/02/20 at 10:33; Status DC Lorazepam (Ativan Inj) 4 mg PRN Q15MIN PRN IV SEE COMMENTS; Start 04/02/20 at 10:30; Stop 04/02/20 at 10:33; Status DC Acetaminophen (Tylenol) 1,000 mg PRN Q6HRS PRN PO PAIN Last administered on 04/04/20 05:30; Start 04/02/20 at 10:30 Ceftriaxone Sodium (Rocephin) 1 gm Q24H IVP Last administered on 04/02/20 20:20; Start 04/02/20 at 20:00; Stop 04/03/20 at 17:00; Status DC Doxepin HCl (SINequan) 10 mg QHS PO Last administered on 04/02/20at 21:39; Start 04/02/20 at 21:00; Stop 04/03/20 at 20:40; Status DC Trazodone HCl (Desyrel) 100 mg QHS PO Last administered on 04/03/20 20:44; Start 04/02/20 at 21:00 Cefdinir (Omnicef) 300 mg BID PO Last administered on 04/04/20 08:44; Start 04/03/20 at 21:00 Lactobacillus Rhamnosus (Culturelle) 1 cap BID PO Last administered on 08:45; Start 04/03/20 at 21:00 Cyclobenzaprine HCl (Flexeril) 10 mg HS PO Last administered on 04/03/20at 20:44; Start 04/03/20 at 21:00 Folic Acid (Folic Acid) 1 mg DAILY PO Last administered on 04/04/20at 08:44; Start 04/04/20 at 09:00 Multivitamins (Thera M Plus) 1 tab DAILY PO Last administered on 04/04/20 08:45; Start 04/04/20 at 09:00 Thiamine Mononitrate (Vitamin B-1) 100 mg DAILY PO Last administered on 04/04/20 08:44; Start 04/04/20 at 09:00 Ibuprofen (Motrin) 600 mg PRN Q8HRS PRN PO INFLAMMATION Last administered on 04/04/20 09:44; Start 04/04/20 at 09:30 Cyclobenzaprine HCl (Flexeril) 10 mg 1X ONCE PO Last administered on 04/04/20 09:43; Start 04/04/20 at 09:30; Stop 04/04/20 at 09:33; Status DC Active Scripts Active Reported Doxepin Hcl 50 Mg Capsule 1 Cap PO QHS Propranolol Hcl 10 Mg Tablet 1 Tab PO PRN TID PRN Trazodone Hcl 50 Mg Tablet 1 Tab PO PRN QHS PRN Sertraline Hcl 100 Mg Tablet 1 Tab PO DAILY Alprazolam 0.5 Mg Tablet 1 Tab PO PRN QHS PRN Vitals/I & O Vital Sign - Last 24 Hours 04/03/20 04/03/20 04/03/20 04/03/20 15:00 19:35 19:58 23:57 Temp 98.0 97.7 97.8 98.0 97.7 97.8 Pulse 86 94 85 Resp 16 16 16 B/P (MAP) 125/89 (101) 143/92 (109) 128/91 (103) Pulse Ox 95 97 97 O2 Delivery Room Air Room Air Room Air Room Air 04/04/20 04/04/20 04/04/20 04/04/20 03:53 07:55 08:05 10:29 Temp 97.8 97.8 98.1 97.8 97.8 98.1 Pulse 85 81 88 Resp 16 16 16 B/P (MAP) 134/89 (104) 144/97 (113) 135/83 (100) Pulse Ox 97 95 98 O2 Delivery Room Air Room Air Room Air Room Air Intake and Output 04/03/20 04/03/20 04/04/20 15:00 23:00 07:00 Intake Total 240 ml 720 ml Balance 240 ml 720 ml Justicifation of Admission Dx: Justifications for Admission: Justification of Admission Dx: Yes JOSELYN DIAL MD Apr 04, 2020 11:24
--- NOTE | 2020-04-04 12:05 | NUR ---
SS following up with discharge planning. SS reviewed pt chart and discussed with pt RN. Pt is from home and is currently on room air. Pt has ETOH. Pat team referral made for assessment and recommendations. Discharge plan is to home when medically ready. SS will continue to follow for discharge planning.
[2020-04-04] MEDS ORDERED: GADOTERATE 7.5 MMOL/15ML VIAL. IVP ONE (12:30)
[2020-04-04 14:38] VITALS: BP 144/81
--- NOTE | 2020-04-04 15:20 | RAD ---
MRI Brain with and without contrast History:New onset seizure Technique: Multiplanar, multi sequential pre and postcontrast MR imaging was performed of the brain. Comparison: None other than head CT April 01, 2020 Findings: There is no evidence of recent infarct or cytotoxic edema. The ventricles, sulci, and cisterns are within normal limits in size and configuration. There is no significant midline shift, intraaxial mass effect, or focal abnormal extra-axial fluid collection. There is no significant signal abnormality of the brain parenchyma. Hippocampal formations are symmetric in size and signal characteristics. There is no nodular parenchymal or leptomeningeal enhancement. There is preservation of the major intracranial flow-voids at the skull base. The cerebellar tonsils are normal in location. There is no significant abnormality of the pituitary gland. There is polypoid mucosal thickening/mucous retention cysts of the left maxillary sinus, greatest dimension about 2.7 cm AP, adjacent mild mucosal thickening. There is a 0.4 cm likely cyst of the pineal gland. The mastoid air cells are aerated. There is preserved marrow signal of the clivus. Impression: 1. Other than small likely cyst of the pineal gland, there is no significant intracranial abnormality. 2. There is polypoid mucosal thickening/mucous retention cyst inferior left maxillary sinus. Electronically signed by: Konrad Gray MD (04/04/2020 3:17 PM) [id number]
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
[2020-04-04] MEDS ORDERED: Folic Acid PO (16:01)
[2020-04-04] MEDS ORDERED: ACET500T68 PO (16:01)
[2020-04-04] MEDS ORDERED: IBUP-1670 PO (16:01)
[2020-04-04] MEDS ORDERED: CYCL10TA2 PO (16:01)
[2020-04-04] MEDS ORDERED: THIA100T22 PO (16:01)
[2020-04-04] MEDS ORDERED: LACT1CAP19 PO (16:01)
[2020-04-04] MEDS ORDERED: CEFD300C PO (16:01)
[2020-04-04] MEDS ORDERED: MULT1TAB90 PO (16:01)
--- NOTE | 2020-04-04 16:02 | DISCH ---
DISCHARGE INSTRUCTIONS Condition on Discharge Condition on Discharge: Stable Activity After Discharge Activity Instructions for Disc: Activity as tolerated Driving Instructions after Dis: Do not drive Weight Bearing Status after Di: As tolerated Diet after Discharge Diet after Discharge: Regular Liquid Texture: Thin Liquid Wound Incision Care Wound/Incision Care: Ice to area for comfort Checks after Discharge Checks after discharge: Check blood press - daily Contacting the DRSerina after DC Call your doctor for: If your condition worsens Treatment/Equipment after DC Adaptive Equipment Issued: None Warfarin Follow-Up Warfarin Follow UP: see pcp this week, neurology 60 days JOSELYN DIAL MD Apr 04, 2020 16:02
--- NOTE | 2020-04-04 17:05 | NUR ---
Discharge: Verbal and written. Reviewed medications, follow-up, seizure, ETOH withdraw. patient verbalized understanding. Prescriptions sent to pharmacy by Dr. Andres. All belongings with patient. Clothing provided. IV removed without complications, catheter tip in-tact. patient ambulated off of unit via wheelchair accompanied by nurse.
[2020-04-07] MEDS ORDERED: THIAMINE INJ 100 MG in IV DEXTROSE 5% 50 ML IV SCH (09:00)
== END 2020-04-04 17:05 | disposition home or self-care (01) | DRG 101 ==
LOC: ER 19:01 → 2 SOUTH 22:41
PROVIDERS: ADMIT Family Medicine; ATTEND Family Medicine
PROC: 4A10X4Z Monitoring of Central Nervous Electrical Activity, External Approach (ICD-10-PCS; principal; 2020-04-04)
DX: G40.89 Other seizures (principal); F10.239 Alcohol dependence with withdrawal, unspecified; E87.2 Acidosis; E78.00 Pure hypercholesterolemia, unspecified; F41.9 Anxiety disorder, unspecified; F32.9 Major depressive disorder, single episode, unspecified; M54.2 Cervicalgia; F17.210 Nicotine dependence, cigarettes, uncomplicated; G47.00 Insomnia, unspecified; W18.30XA Fall on same level, unspecified, initial encounter; K02.9 Dental caries, unspecified; Z82.5 Family history of asthma and other chronic lower respiratory diseases; Z82.49 Family history of ischemic heart disease and other diseases of the circulatory system; Z81.8 Family history of other mental and behavioral disorders; Y93.89 Activity, other specified; Y92.89 Other specified places as the place of occurrence of the external cause; Y99.8 Other external cause status
CPT/HCPCS: 36415; 70450; 70553; 71045; 72125; 80047; 80048; 80053; 80307; 81025; 82550; 83605; 83690; 83735; 84100; 85025; 85610; 93005; 95816; 96361; 96372; 96374; 99285; A9575; G0480; J0696; J1200; J2060; J2405; J2560; J2765; J3411; J3490; J7030; J7120; G0378